=== PATIENT | female | born 1985 | race African-American/Black ===

== ENCOUNTER 2016-06-18 14:26 | Outpatient (CLI) | payer OTHER, MEDICAID ==
[2016-06-18 15:24] LABS: APPEARANCE,URINE CLOUDY; BILIRUBIN,URINE NEGATIVE (NEGATIVE); GLUCOSE, URINE NEGATIVE (NEGATIVE); KETONES,URINE TRACE mg/dL (NEGATIVE); LEUKOCYTE ESTERASE,URINE LARGE (NEGATIVE); NITRITE,URINE POSITIVE (NEGATIVE); PROTEIN,URINE 30 mg/dL (NEGATIVE)
[2016-06-18 15:26] LABS: URINE BARBITURATES SCREEN NEGATIVE; URINE METHADONE SCREEN NEGATIVE; URINE OPIATES LOW NEGATIVE; URINE PHENCYCLIDINE SCREEN NEGATIVE
[2016-06-18] MEDS ORDERED: LOPERAMIDE HCL 2 MG CAPSULE PO ONE (15:57)
--- NOTE | 2016-06-18 16:00 | L&D Flow Sheet ---
LD Flowsheet Datetime Report Generated by CPN: 06/18/2016 16:00 Datetime: 06/18/2016 15:17 Vital Signs NBP Sys/Rachel/Mean (mmHg): 98 (QS system process) : 61 (QS system process) : 75 (QS system process) Pulse: 85 (QS system process) Datetime: 06/18/2016 15:06 Pain Pain Scale: 2 (Natalia Payne, VIRAL) Pain Presence: Constant (Natalia Payne, VIRAL) Pain Type: Cramping (Natalia Payne, VIRAL) Pain Location: Abdomen (Natalia Payne RN) Pain Goal: 0 (Natalia Payne RN) Pain Relief Measures: Comfort Measures (Natalia Payne, VIRAL) Pain Coping: Talking Through Contractions (Natalia Payne, VIRAL) Vaginal Exam Membrane Status: Intact (Natalia Payne, VIRAL) Vaginal Bleeding: None (Natalia Payne, VIRAL) Maternal Assessment Level of Consciousness: Fully Conscious (Natalia Marhefka, RN) DTR's/Clonus: DTRs 2+; No Clonus (Natalia Marhefka, RN) Headache: Denies (Natalia Marhefka, RN) Breath Sounds, Left: Clear and Equal (Natalia Marhefka, RN) Breath Sounds, Right: Clear and Equal (Natalia Marhefka, RN) Nausea/Vomiting: Present (Natalia Marhefka, RN) RUQ Epigastric Pain: Denies (Natalia Marhefka, RN) Datetime: 06/18/2016 14:47 Vital Signs NBP Sys/Rachel/Mean (mmHg): 98 (QS system process) : 58 (QS system process) : 73 (QS system process) Pulse: 93 (QS system process) Datetime: 06/18/2016 14:45 Patient Care Patient Position/Activity: Left Lateral; Semi-Fowlers (Natalia Marhefka, RN) Teaching Instructional Method: Verbal; Patient Instructed; Verbalized Understanding (Natalia Marhefka, RN) Plan of Care: Plan of Care Discussed (Natalia Payne RN) Unit Routine: [place] to Room; Call Reese; Bed; Unit Personnel; Monitoring; Bathroom Privileges (Natalia Payne RN)
[2016-06-18] MEDS ORDERED: LOPERAMIDE HCL 2 MG CAPSULE ONE (16:03)
== END 2016-06-18 16:50 | disposition home or self-care (01) ==
LOC: LC 14:26
PROVIDERS: ATTEND Obstetrics & Gynecology
PROC: 4A1HXCZ Monitoring of Products of Conception, Cardiac Rate, External Approach (ICD-10-PCS; principal; 2016-06-18)
DX: O21.2 Late vomiting of pregnancy (principal); R19.7 Diarrhea, unspecified; R10.9 Unspecified abdominal pain; Z3A.28 28 weeks gestation of pregnancy
CPT/HCPCS: 80307; 81001

== ENCOUNTER 2016-08-30 19:15 | Outpatient (CLI) | payer OTHER, MEDICAID ==
[2016-08-30 20:13] LABS: APPEARANCE,URINE CLEAR; BILIRUBIN,URINE NEGATIVE (NEGATIVE); GLUCOSE, URINE NEGATIVE (NEGATIVE); KETONES,URINE NEGATIVE (NEGATIVE); LEUKOCYTE ESTERASE,URINE MODERATE (NEGATIVE); NITRITE,URINE NEGATIVE (NEGATIVE); PROTEIN,URINE NEGATIVE (NEGATIVE); URINE SPECIFIC GRAVITY 1.004; UROBILINOGEN,URINE NEGATIVE mg/dL (<2.0)
[2016-08-30 20:16] LABS: AMNISURE (ROM) NEGATIVE (NEGATIVE)
[2016-08-30 20:28] LABS: URINE BARBITURATES SCREEN NEGATIVE; URINE METHADONE SCREEN NEGATIVE; URINE OPIATES LOW NEGATIVE; URINE PHENCYCLIDINE SCREEN NEGATIVE
[2016-08-30] MEDS ORDERED: HYDROXYZINE PAMOATE 50 MG CAPSULE ONE (22:21)
== END 2016-08-30 22:31 | disposition home or self-care (01) ==
LOC: LC 19:15
PROVIDERS: ATTEND Student in an Organized Health Care Education/Training Program
PROC: 4A1HXCZ Monitoring of Products of Conception, Cardiac Rate, External Approach (ICD-10-PCS; principal; 2016-08-30)
DX: O47.1 False labor at or after 37 completed weeks of gestation (principal); Z3A.39 39 weeks gestation of pregnancy
CPT/HCPCS: 80307; 81005; 84112

== ENCOUNTER 2016-08-31 11:43 | Inpatient (IN) | payer OTHER, MEDICAID ==
[~2016-08-31 11:43] MED LIST: DEXAMETHASONE SOD PHOSPHATE INJ 4 MG/1 ML VIAL ONE; KETOROLAC TROMETHAMINE 60 MG/2 ML SDV ONE; METOCLOPRAMIDE HCL INJ/PF 10 MG/2 ML SDV ONE; ONDANSETRON HCL INJ/PF 4 MG/2 ML SDV ONE
--- NOTE | 2016-08-31 12:00 | Non Stress Test Report ---
Non Stress Test Datetime Report Generated by CPN: 08/31/2016 12:00 DEMOGRAPHIC Test Number: 1 EGA NST: 38.5 INDICATION Indication for Study: Other Indication for Study (NST) Other: LC MONITORING Monitor Explained: Monitor Explained; Test Explained; Patient Verbalized Understanding Time on Monitor: 08/30/2016 19:40 Time off Monitor: 08/30/2016 22:06 NST Duration: 146 NST INTERVENTIONS NST Interventions: Reposition Patient Physician Notified NST: Dr Wang BABY A: [id number] BABY A Movement : Present Contraction Frequency : 3-11 FHR Baseline : 140 Accelerations : 15X15 Decelerations : None Variability : Moderate 6-25bpm NST Review: Meets Criteria for Reactive NST NST Review and Verified By : Fidel Chinchilla RN NST Results: Reactive NST REPORT Report Trigger: Send Report
[2016-08-31] MEDS ORDERED: CEFAZOLIN SODIUM 2 GM in DEXTROSE 5%-WATER 50 ML IV PRN (12:45)
[2016-08-31] MEDS ORDERED: CEFAZOLIN 2 GM/D5W RTU 2 GM/50 ML RTUPB IV PRN (13:05)
[2016-08-31 13:21] LABS: APPEARANCE,URINE SLIGHTLY-CLOUDY; BILIRUBIN,URINE NEGATIVE (NEGATIVE); GLUCOSE, URINE NEGATIVE (NEGATIVE); KETONES,URINE NEGATIVE (NEGATIVE); LEUKOCYTE ESTERASE,URINE LARGE (NEGATIVE); NITRITE,URINE POSITIVE (NEGATIVE); PROTEIN,URINE NEGATIVE (NEGATIVE); URINE SPECIFIC GRAVITY 1.006; UROBILINOGEN,URINE NEGATIVE mg/dL (<2.0)
[2016-08-31 13:38] LABS: URINE BARBITURATES SCREEN NEGATIVE; URINE METHADONE SCREEN NEGATIVE; URINE OPIATES LOW NEGATIVE; URINE PHENCYCLIDINE SCREEN NEGATIVE
[2016-08-31 13:54] LABS: ABSOLUTE LYMPHOCYTES (AUTO) 2.1 10^3/uL (0.5-4.7); ABSOLUTE MONOCYTES (AUTO) 1.2 10^3/uL (0.1-1.4); ABSOLUTE NEUT (AUTO) 3.9 10^3/uL (1.7-8.2); BASOPHILS % (AUTO) 0.4 % (0-2); EOSINOPHILS % (AUTO) 0.4 % (0-6); HEMATOCRIT 31.4 % (36.0-47.0); HEMOGLOBIN 9.9 g/dL (12.0-15.5); HGB HCT DIFFERENCE -1.7; LYMPHOCYTES % (AUTO) 29.3 % (13-45); MEAN CORPUSCULAR HEMOGLOBIN 22.6 pg (27.0-33.4); MEAN CORPUSCULAR HGB CONC 31.5 g/dL (32.0-36.0); MEAN CORPUSCULAR VOLUME 72 fl (80-97); MONOCYTES % (AUTO) 17.1 % (3-13); RED BLOOD COUNT 4.38 10^6/uL (3.72-5.28); RED CELL DISTRIBUTION WIDTH 16.2 % (11.5-14.0); SEGMENTED NEUTROPHILS % (AUTO) 52.8 % (42-78); WHITE BLOOD COUNT 7.3 10^3/uL (4.0-10.5)
[2016-08-31] MEDS ORDERED: CITRIC ACID/SODIUM CITRATE ORAL SOLN 15 ML UDCUP ONE (16:19)
[2016-08-31] MEDS ORDERED: CEFAZOLIN 2 GM/D5W RTU 2 GM/50 ML RTUPB IV ONE (16:19)
[2016-08-31] MEDS ORDERED: FENTANYL CITRATE INJ/PF 100 MCG/2 ML AMPUL ONE ×3 (16:51→19:36)
[2016-08-31] MEDS ORDERED: EPHEDRINE SULFATE INJ 50 MG/1 ML AMPULE ONE (16:51)
[2016-08-31] MEDS ORDERED: OXYTOCIN 10 UNIT/ML VIAL ONE (16:51)
[2016-08-31] MEDS ORDERED: OXYTOCIN/NORMAL SALINE 20 UNIT/1,000 ML RTUINJ ONE (16:51)
[2016-08-31] MEDS ORDERED: MIDAZOLAM 2 MG/2 ML INJ ONE (16:51)
[2016-08-31] MEDS ORDERED: PROMETHAZINE HCL INJ 25 MG/1 ML VIAL IV PRN ×3 (17:03→20:07)
[2016-08-31] MEDS ORDERED: DIPHENHYDRAMINE HCL 50 MG/ML VIAL IV PRN (17:03)
[2016-08-31] MEDS ORDERED: ONDANSETRON HCL INJ/PF 4 MG/2 ML SDV IV PRN (17:03)
[2016-08-31] MEDS ORDERED: MEPERIDINE HCL/PF INJ 25 MG/1 ML DISP.SYRIN IV PRN (17:03)
[2016-08-31] MEDS ORDERED: FENTANYL CITRATE INJ/PF 100 MCG/2 ML AMPUL IV PRN ×3 (17:03)
[2016-08-31] MEDS ORDERED: MORPHINE SULFATE 10 MG/ML INJ IV PRN (17:03)
[2016-08-31] MEDS ORDERED: ACETAMINOPHEN 100 ML IV ONE (18:19)
--- NOTE | 2016-08-31 18:46 | Operative Report ---
Operative Report DATE OF SURGERY: 08/31/16 Operative Report: Repeat PREOPERATIVE DIAGNOSIS: Intrauterine at 38 weeks and 6 days with history of currently in latent labor with lower uterine segment pain, gestational diabetes POSTOPERATIVE DIAGNOSIS: Intrauterine at 38 weeks and 6 days with gestational diabetes. latent labor, history of , and lower uterine segment pain OPERATION: Repeat low transverse cervical section SURGEON: ELVIRA PERES ANESTHESIA: Spinal TISSUE REMOVED OR ALTERED: placenta COMPLICATIONS: None ESTIMATED BLOOD LOSS: 500 INTRAOPERATIVE FINDINGS: Herring female with Apgars 9 and 9. Weight 2930 g. Vertex presentation and clear amniotic fluid. Lower uterine segment was thin but not ruptured. Normal tubes and ovaries. PROCEDURE: After discussing risks benefits and alternatives of the procedure and obtaining informed consent the patient was taken to the operating room where spinal anesthesia was achieved. She was positioned in the dorsal supine position with a leftward tilt. She was then prepped and draped in the usual standard fashion. Pfannenstiel skin incision was made and the abdomen was entered in layers in the usual standard fashion. The C safe knife was used to make a low- transverse hysterotomy incision. The surgeon's hand was entered into the hysterotomy incision and the vertex elevated. After delivery of the head, a loose nuchal cord was reduced. Shoulders and body were delivered easily thereafter. Nasopharynx and oropharynx were bulb suctioned. Cord was clamped -2 and cut. The was handed to pediatrics who were present. The placenta was manually extracted. The uterus was cleared of all clots and debris. The hysterotomy incision was closed with 0 Monocryl in a running locked fashion. Excellent hemostasis was observed. The uterus tubes and ovaries were returned to the peritoneal cavity. The cavity was irrigated with saline and hemostasis was again assured. A layer of Interceed was placed in an inverted T fashion over the lower uterine segment and anterior aspect of the uterus. Peritoneum was closed with 2-0 Vicryl in a pursestring fashion. Rectus muscles were loosely reapproximated with interrupted stitches of 2-0 Vicryl. The subfascial space was inspected and noted to be hemostatic. The fascia was closed with #1 Vicryl. The skin was closed in a subcuticular fashion with 4-0 Monocryl. An OpSite dressing was applied. The patient was taken to recovery in stable condition. All sponge needle lap and instrument counts were correct correct -2.
[2016-08-31] MEDS ORDERED: MORPHINE SULFATE 10 MG/ML INJ ONE (19:16)
--- NOTE | 2016-08-31 19:28 | Delivery Summary ---
Del Sum A-C Datetime Report Generated by CPN: 08/31/2016 19:27 DELIVERY PERSONNEL DELIVERY PERSONNEL: [phone] Delivery Doctor:: Brigitte El MD Anesthesiologist:: Yanely Hernandez MD SIDE DOOR MAN:: Sarah Cordova SIDE DOOR MAN Labor and Delivery Nurse:: Hannah Ventura RN Neonatal Nurse Practitioner:: LIU Moralez Nursery Nurse:: Guadalupe Coe RN MATERNAL INFORMATION Delivery Anesthesia: Spinal Medications After Delivery: Pitocin Bolus-Please Comment Meds After Delivery Comment: Pitocin 20 units in 1 L NS Maternal Complications: None LABOR SUMMARY EDC: 09/08/2016 00:00 No. Babies in Womb: 1 Attempted: No Labor Anesthesia: None LABOR INFORMATION Oxytocin: N/A Group B Beta Strep: positive Antibiotics # of Doses: 1 Antibiotics Time of Last Dose: 1654 Name of Antibiotic Given: Ancef Steroids Given: None Reason Steroids Not Administered: Not Applicable MEMBRANES Membranes Rupture Method: Artificial Rupture of Membranes: 08/31/2016 17:34 Length of Rupture (hr): 0.00 Amniotic Fluid Color: Clear Amniotic Fluid Amount: None Amniotic Fluid Odor: Normal STAGES OF LABOR Stage 3 hr: 0 Stage 3 min: 2 VAGINAL DELIVERY Episiotomy: None Laceration Extension: N/A Laceration Type: None Laceration Repair: Not Applicable Sponge Count Correct: N/A Sharps Count Correct: N/A CSECTION DELIVERY Primary Indication: Other Other Primary Indication: latent labor Secondary Indication: Other Other Secondary Indication: previous incision tenderness CSection Urgency: Non-Scheduled CSection Incidence: Repeat Elective: Elective CSection Incision: Lower Uterine Transverse BABY A INFORMATION Infant Delivery Date/Time: 08/31/2016 17:34 Method of Delivery: Born in Route : No : N/A Forceps: N/A Vacuum Extraction: N/A Shoulder Dystocia : No PRESENTATION/POSITION BABY A Presentation: Cephalic Cephalic Presentation: Vertex Breech Presentation: N/A PLACENTA INFORMATION BABY A Placenta Delivery Time : 08/31/2016 17:36 Placenta Method of Delivery: Expressed Placenta Status: Delivered SCORES BABY A Heart Rate 1 min: >100 bpm Resp Effort 1 min: Good Cry Reflex Irritability 1 min: Cough or Sneeze or Pulls Away Muscle Tone 1 min: Active Motion Color 1 min: Body [place], Extremities Blue Resuscitation Effort 1 min: Tactile Stimulation SCORE 1 MIN: 9 Heart Rate 5 min: >100 bpm Resp Effort 5 min: Good Cry Reflex Irritability 5 min: Cough or Sneeze or Pulls Away Muscle Tone 5 min: Active Motion Color 5 min: Body [place], Extremities Blue Resuscitation Effort 5 min: Tactile Stimulation SCORE 5 MIN: 9 INFORMATION BABY A Gestational Age at Delivery: 38.6 Gestational Status: Early Term- 37- 38.6 Weeks Infant Outcome : Liveborn Condition : Stable Infant Sex: Female WEIGHT/LENGTH BABY A Birthweight (gm): 2930 Infant Weight (lb): 6 Weight (oz): 7 Length (in): 18.50 Length (cm): 46.99 CORD INFORMATION BABY A No. Cord Vessels: 3 Nuchal Cord : N/A Cord Blood Taken: Yes-For Eval (Mom's Blood Type - or O+) Infant Suction: Mouth; Nose ASSESSMENT BABY A Infant Complications: None Physical Findings at Delivery: Within Normal Limits Respirations: Appears Normal Skin to Skin: No Laundry Press Operator/ALS Called : No Care By: Stella Coe RN Transferred To: [facility] BABY B INFORMATION : N/A
[2016-08-31] MEDS ORDERED: MISOPROSTOL 0.2 MG TABLET ONE (19:45)
[2016-08-31] MEDS ORDERED: METHYLERGONOVINE MALEATE INJ/PF 0.2 MG/1 ML AMPULE ONE (19:45)
[2016-08-31] MEDS ORDERED: FLUCONAZOLE 100 MG TABLET PO ONE (20:05)
[2016-08-31] MEDS ORDERED: HYDROMORPHONE HCL INJ/PF 2 MG/ML AMPULE IV ONE (20:05)
[2016-08-31] MEDS ORDERED: HYDROMORPHONE HCL INJ/PF 2 MG/ML AMPULE IV PRN (20:07)
[2016-08-31] MEDS ORDERED: OXYCODONE-ACETAMINOPHEN 5-325 MG TABLET PO PRN (20:07)
[2016-08-31] MEDS ORDERED: SIMETHICONE 80 MG TAB.CHEW PO PRN (20:07)
[2016-08-31] MEDS ORDERED: MEASLES,MUMPS&RUBELLA VACC/PF 0.5 ML VIAL SUBCUT PRN (20:07)
[2016-08-31] MEDS ORDERED: ACETAMINOPHEN 325 MG TABLET PO PRN (20:07)
[2016-08-31] MEDS ORDERED: DIPH/PERTUSS(ACELL)/TETANUS VAC/PF 0.5 ML SYR (>=10YO) IM PRN (20:07)
[2016-08-31] MEDS ORDERED: OXYTOCIN/NORMAL SALINE 1,000 ML IV PRN (20:07)
[2016-08-31] MEDS ORDERED: RINGERS SOLUTION,LACTATED 1,000 ML IV PRN (20:07)
[2016-08-31] MEDS ORDERED: ONDANSETRON 4 MG TAB.RAPDIS PO PRN (20:09)
[2016-08-31] MEDS ORDERED: HYDROMORPHONE HCL INJ/PF 2 MG/ML AMPULE ONE (20:15)
[2016-08-31] MEDS ORDERED: IBUPROFEN 800 MG TABLET PO PRN (20:56)
[2016-08-31] MEDS ORDERED: PROMETHAZINE HCL INJ 50 MG/1 ML VIAL IM PRN (20:57)
[2016-08-31] MEDS: OXYCODONE-ACETAMINOPHEN 5-325 MG TABLET PO PRN (21:40)
[2016-09-01] MEDS: OXYCODONE-ACETAMINOPHEN 5-325 MG TABLET PO PRN ×3 (04:31→22:08)
[2016-09-01] MEDS: KETOROLAC TROMETHAMINE INJ/PF 30 MG/1 ML SDV IV SCH ×2 (06:10→12:58)
[2016-09-01 06:40] LABS: HEMATOCRIT 30.6 % (36.0-47.0); HEMOGLOBIN 9.8 g/dL (12.0-15.5); HGB HCT DIFFERENCE -1.2; MEAN CORPUSCULAR HEMOGLOBIN 22.8 pg (27.0-33.4); MEAN CORPUSCULAR VOLUME 71 fl (80-97); RED BLOOD COUNT 4.29 10^6/uL (3.72-5.28); RED CELL DISTRIBUTION WIDTH 16.1 % (11.5-14.0)
[2016-09-01 06:45] LABS: WHITE BLOOD COUNT 15.7 10^3/uL (4.0-10.5)
[2016-09-01] MEDS: CITALOPRAM HYDROBROMIDE 20 MG TABLET PO SCH (09:48)
[2016-09-01] MEDS: DOCUSATE SODIUM 100 MG CAPSULE PO SCH ×2 (09:48→17:46)
[2016-09-01] MEDS: PRENATAL VITAMIN W-O CA NO5/FE FUMARATE/FA CAPSULE PO SCH (09:48)
--- NOTE | 2016-09-01 12:19 | PDOC PROGRESS REPORT ---
Subjective-OB Subjective: Post Delivery Day: 1 30 year old s/p repeat delivery pp1. Denies any needs at this time Physical Exam (OB) Vital Signs: Temp Pulse Resp BP Pulse Ox 98.3 F 75 16 108/68 100 09/01/16 11:21 09/01/16 11:21 09/01/16 11:21 09/01/16 11:21 09/01/16 11:21 Intake & Output 08/31/16 09/01/16 09/02/16 06:59 06:59 06:59 Intake Total 1000 Output Total 1200 Balance -200 Weight 79 kg - General General Appearance: Appears well In distress: None - Dressing Removed: No Incision: Dressing - opsite-old blood noted and was marked by RN yesterday, no significant change, will replace with new one - Lochia Lochia Amount: Moderate 25-50 ml Lochia Color: Rubra/Red - Abdomen Description: Tender, Soft Hernia Present: No Fundal Description: Firm, Midline Fundal Height: u/u - u/2 - Respiratory Respiratory Status: No respiratory distress - Extremities Upper extremity: Normal inspection Lower extremities: Normal inspection - Psychological Associated symptoms: Normal affect, Normal mood - mother, fob and several visitors in room. Objective-Diagnostic Laboratory: 09/01/16 06:27 08/31/16 08/31/16 08/31/16 13:00 13:31 13:31 WBC 7.3 RBC 4.38 Hgb 9.9 L Hct 31.4 L MCV 72 L MCH 22.6 L MCHC 31.5 L RDW 16.2 H Plt Count 286 Seg Neutrophils % 52.8 Lymphocytes % 29.3 Monocytes % 17.1 H Eosinophils % 0.4 Basophils % 0.4 Absolute Neutrophils 3.9 Absolute Lymphocytes 2.1 Absolute Monocytes 1.2 Absolute Eosinophils 0.0 Absolute Basophils 0.0 Urine Color YELLOW Urine Appearance SLIGHTLY-CLOUDY Urine pH 7.0 Ur Specific [place] 1.006 Urine Protein NEGATIVE Urine Glucose (UA) NEGATIVE Urine Ketones NEGATIVE Urine Blood NEGATIVE Urine Nitrite POSITIVE H Ur Leukocyte Esterase LARGE H Blood Type O POSITIVE Antibody Screen NEGATIVE 09/01/16 06:27 WBC 15.7 H D RBC 4.29 Hgb 9.8 L Hct 30.6 L MCV 71 L MCH 22.8 L MCHC 32.0 RDW 16.1 H Plt Count 274 Seg Neutrophils % Lymphocytes % Monocytes % Eosinophils % Basophils % Absolute Neutrophils Absolute Lymphocytes Absolute Monocytes Absolute Eosinophils Absolute Basophils Urine Color Urine Appearance Urine pH Ur Specific [place] Urine Protein Urine Glucose (UA) Urine Ketones Urine Blood Urine Nitrite Ur Leukocyte Esterase Blood Type Antibody Screen Assessment and Plan(PN) - Assessment and Plan (1) Anemia Qualifiers: Anemia type: unspecified type Qualified Code(s): D64.9 - Anemia, unspecified Is this a current diagnosis for this admission?: YesPlan: iron supplementation and increase iron in diet (2) Delivery by emergency caesarean section Is this a current diagnosis for this admission?: YesPlan: continue stay, anticipate d/c in the am - Time Spent with Patient Time with patient: Less than 15 minutes Medications reviewed and adjusted accordingly: Yes - Disposition Anticipated Discharge: Home Within: within 24 hours
[2016-09-01] MEDS: IBUPROFEN 800 MG TABLET PO SCH (23:39)
[2016-09-02] MEDS: OXYCODONE-ACETAMINOPHEN 5-325 MG TABLET PO PRN ×2 (02:26→08:45)
[2016-09-02] MEDS: IBUPROFEN 800 MG TABLET PO SCH ×2 (06:04→11:11)
--- NOTE | 2016-09-02 07:39 | PDOC PROGRESS REPORT ---
Subjective-OB Subjective: Post Delivery Day: 30 year old. Denies any needs at this time Doing well, family at BS, ready to go home, pain under control, sore when breast feeding, passing gas, scant bleeding, ready to go home Physical Exam (OB) Vital Signs: Temp Pulse Resp BP Pulse Ox 98.3 F 72 18 105/57 L 96 09/02/16 04:18 09/02/16 04:18 09/02/16 04:18 09/02/16 04:18 09/02/16 04:18 Intake & Output 09/01/16 09/02/16 09/03/16 06:59 06:59 06:59 Intake Total 1000 Output Total 1200 300 Balance -200 -300 Weight 79 kg - Dressing Removed: No Incision: Dressing, Well Approximated - Lochia Lochia Amount: Scant < 10 ml Lochia Color: Rubra/Red - Abdomen Description: Tender, Firm Hernia Present: No Fundal Description: Firm, Midline Fundal Height: u/3 - u/4 Objective-Diagnostic Laboratory: 09/01/16 06:27 Assessment and Plan(PN) - Assessment and Plan (1) Delivery by emergency caesarean section Is this a current diagnosis for this admission?: Yes (2) Anemia Qualifiers: Anemia type: unspecified type Qualified Code(s): D64.9 - Anemia, unspecified Is this a current diagnosis for this admission?: Yes - Time Spent with Patient Time with patient: Less than 15 minutes Medications reviewed and adjusted accordingly: Yes - Disposition Anticipated Discharge: Home Within: Other - home today
--- NOTE | 2016-09-02 07:47 | PDOC DISCHARGE SUMMARY ---
Final Diagnosis Discharge Date: 09/02/16 - Final Diagnosis (1) Delivery by emergency caesarean section Is this a current diagnosis for this admission?: Yes (2) Anemia Is this a current diagnosis for this admission?: Yes Discharge Data - Discharge Medication Home Medications: Vit#96/Ferrous Fum/FA [ Tablet] 1 each PO DAILY 12/10/13 Citalopram Hydrobromide [Celexa 20 mg Tablet] 10 mg PO DAILY #0 tablet 09/02/16 Ibuprofen [Motrin 800 mg Tablet] 800 mg PO Q6 #30 tablet 09/02/16 Oxycodone HCl/Acetaminophen [Percocet 5-325 mg Tablet] 1 tab PO Q4HP PRN #30 tablet 09/02/16 Reason(s) for Admission: Ceasarean Section-Repeat Procedures: NST, Ultrasound Intrapartum Procedure(s): : Low Cervical, Transverse - Data Baby 1 Female Home with Mother: Yes Complications: No - Diagnosis Test Laboratory: Temp Pulse Resp BP Pulse Ox 98.3 F 72 18 105/57 L 96 09/02/16 04:18 09/02/16 04:18 09/02/16 04:18 09/02/16 04:18 09/02/16 04:18 08/31/16 08/31/16 09/01/16 13:00 13:31 06:27 RBC 4.38 4.29 Hgb 9.9 L 9.8 L Hct 31.4 L 30.6 L Urine Opiates Screen NEGATIVE - Discharge information/Instructions Discharge Activity: Activity As Tolerated, No Lifting Over 10 Pounds, No Lifting /Push/Pulling, Pelvic Rest Discharge Diet: As Tolerated, Regular Disposition: HOME, SELF-CARE Follow up with: [facility] in: 1, Weeks
[2016-09-02] MEDS: CITALOPRAM HYDROBROMIDE 20 MG TABLET PO SCH (10:09)
[2016-09-02] MEDS: PRENATAL VITAMIN W-O CA NO5/FE FUMARATE/FA CAPSULE PO SCH (10:10)
[2016-09-02] MEDS: DOCUSATE SODIUM 100 MG CAPSULE PO SCH (10:10)
[2016-09-02 10:19] VITALS: BP 114/67
== END 2016-09-02 12:31 | disposition home or self-care (01) | DRG 766 ==
LOC: LC 11:43 → LR 12:47 → 2S 20:20
PROVIDERS: ADMIT Specialist; ATTEND Specialist
PROC: 10D00Z1 Extraction of Products of Conception, Low, Open Approach (ICD-10-PCS; principal; 2016-08-31)
PROC: 4A1HXCZ Monitoring of Products of Conception, Cardiac Rate, External Approach (ICD-10-PCS; 2016-08-31)
DX: O34.211 Maternal care for low transverse scar from previous cesarean delivery (principal); O99.02 Anemia complicating childbirth; D64.9 Anemia, unspecified; O24.420 Gestational diabetes mellitus in childbirth, diet controlled; O69.81X0 Labor and delivery complicated by cord around neck, without compression, not applicable or unspecified; O99.824 Streptococcus B carrier state complicating childbirth; Z83.3 Family history of diabetes mellitus; Z80.1 Family history of malignant neoplasm of trachea, bronchus and lung; Z80.42 Family history of malignant neoplasm of prostate; Z80.0 Family history of malignant neoplasm of digestive organs; Z3A.38 38 weeks gestation of pregnancy; Z37.0 Single live birth
CPT/HCPCS: 1961; 36415; 80307; 81001; 81005; 82962; 85025; 85027; 86592; 86850; 86900; 86901; 88307; 94799; J0131; J0690; J1100; J1170; J1885; J2210; J2250; J2270; J2405; J2590; J2765; J3010; J3490; J7120

== ENCOUNTER 2016-12-06 13:43 | Emergency (ER) | payer OTHER, MEDICAID ==
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
== END 2016-12-06 14:23 | disposition home or self-care (01) ==
LOC: ER 13:43
DX: S46.912A Strain of unspecified muscle, fascia and tendon at shoulder and upper arm level, left arm, initial encounter (principal); M54.5 Low back pain; V89.2XXA Person injured in unspecified motor-vehicle accident, traffic, initial encounter
CPT/HCPCS: 99283

== ENCOUNTER 2017-08-01 06:32 | Outpatient (CLI) | payer MEDICAID ==
[2017-08-01 07:06] LABS: APPEARANCE,URINE CLEAR; BILIRUBIN,URINE NEGATIVE (NEGATIVE); COLOR,URINE STRAW; GLUCOSE, URINE NEGATIVE (NEGATIVE); KETONES,URINE NEGATIVE (NEGATIVE); LEUKOCYTE ESTERASE,URINE TRACE (NEGATIVE); NITRITE,URINE NEGATIVE (NEGATIVE); PROTEIN,URINE NEGATIVE (NEGATIVE); URINE SPECIFIC GRAVITY 1.003; UROBILINOGEN,URINE NEGATIVE mg/dL (<2.0)
[2017-08-01] MEDS ORDERED: RINGERS SOLUTION,LACTATED 1,000 ML IV ONE (07:15)
[2017-08-01] MEDS ORDERED: HYDROXYZINE PAMOATE 50 MG CAPSULE PO ONE (07:16)
[2017-08-01 07:26] LABS: URINE AMPHETAMINES SCREEN NEGATIVE; URINE BARBITURATES SCREEN NEGATIVE; URINE BENZODIAZEPINES SCREEN NEGATIVE; URINE COCAINE SCREEN NEGATIVE; URINE MARIJUANA (THC) SCREEN NEGATIVE; URINE METHADONE SCREEN NEGATIVE; URINE PHENCYCLIDINE SCREEN NEGATIVE
--- NOTE | 2017-08-01 09:06 | RADIOLOGY REPORT (SQ) ---
EXAM DESCRIPTION: U/S OB 14+ TRNABD 1GES W/O DOP COMPLETED DATE/TIME: 08/01/2017 8:36 am REASON FOR STUDY: check cervical length, complete anatomy per dr meraz COMPARISON: None. TECHNIQUE: Static and Dynamic grayscale imaging performed of gravid uterus using transabdominal appr oach. Additional selected color Doppler and spectral images recorded. All stored on PACS. LIMITATIONS: None. FINDINGS: EGA: 25 weeks 0 days MATHEUS: 11/14/2017 EFW: 767 grams PERCENTILE: 41 CINDY: 8.1 PLACENTA: Fundal. GRADE: I PRESENTATION: Cephalic. ANATOMY: HEART RATE: 133 beats per minute. FOUR CHAMBER HEART: Visualized. THREE VESSEL CORD: Yes. CORD INSERTION: Visualized. KIDNEYS AND BLADDER: Visualized. Appear normal. STOMACH: Visualized. Appears normal. SPINE: Normal as visualized. BRAIN AND LATERAL VENTRICLES: Visualized. Appear normal. OTHER: No other significant finding. MATERNAL ADNEXA: Maternal ovaries not visualized. CERVICAL LENGTH: 3.4 cm. Closed. OTHER: No other significant finding. IMPRESSION: LIVING INTRAUTERINE . ESTIMATED GESTATIONAL AGE 25 weeks 0 days NO VISUALIZED ANOMALIES. Trimester of : Second trimester - 13 weeks 1 day to 27 weeks 6 days. TECHNICAL DOCUMENTATION: JOB ID: [id number] [employer]- All Rights Reserved Reading location - IP/workstation name: [email or web address]
== END 2017-08-01 11:00 | disposition home or self-care (01) ==
LOC: LC 06:32
PROVIDERS: ATTEND Obstetrics & Gynecology
PROC: 4A1HXCZ Monitoring of Products of Conception, Cardiac Rate, External Approach (ICD-10-PCS; principal; 2017-08-01)
DX: O26.892 Other specified pregnancy related conditions, second trimester (principal); R10.9 Unspecified abdominal pain; O98.812 Other maternal infectious and parasitic diseases complicating pregnancy, second trimester; B37.0 Candidal stomatitis; Z3A.25 25 weeks gestation of pregnancy
CPT/HCPCS: 36415; 76805; 80307; 80361; 81001

== ENCOUNTER 2017-11-07 05:56 | Inpatient (IN) | payer MEDICAID ==
[2017-11-06 11:35] LABS: APPEARANCE,URINE SLIGHTLY-CLOUDY; BILIRUBIN,URINE NEGATIVE (NEGATIVE); GLUCOSE, URINE NEGATIVE (NEGATIVE); KETONES,URINE 20 mg/dL (NEGATIVE); LEUKOCYTE ESTERASE,URINE LARGE (NEGATIVE); NITRITE,URINE NEGATIVE (NEGATIVE); PROTEIN,URINE NEGATIVE (NEGATIVE); URINE SPECIFIC GRAVITY 1.014
[2017-11-06 11:36] LABS: COLOR,URINE YELLOW
[2017-11-06 12:41] LABS: ABSOLUTE EOSINOPHILS # (AUTO) 0.1 10^3/uL (0.0-0.6); ABSOLUTE LYMPHOCYTES (AUTO) 2.2 10^3/uL (0.5-4.7); ABSOLUTE MONOCYTES (AUTO) 0.8 10^3/uL (0.1-1.4); ABSOLUTE NEUT (AUTO) 4.3 10^3/uL (1.7-8.2); BASOPHILS % (AUTO) 0.4 % (0-2); HEMOGLOBIN 10.6 g/dL (12.0-15.5); LYMPHOCYTES % (AUTO) 29.6 % (13-45); MEAN CORPUSCULAR HEMOGLOBIN 24.5 pg (27.0-33.4); MEAN CORPUSCULAR HGB CONC 33.1 g/dL (32.0-36.0); MEAN CORPUSCULAR VOLUME 74 fl (80-97); MONOCYTES % (AUTO) 11.4 % (3-13); PLATELET COUNT 305 10^3/uL (150-450); RED BLOOD COUNT 4.33 10^6/uL (3.72-5.28); RED CELL DISTRIBUTION WIDTH 15.3 % (11.5-14.0); SEGMENTED NEUTROPHILS % (AUTO) 57.6 % (42-78); TOTAL CELLS COUNTED % (AUTO) 100 %; WHITE BLOOD COUNT 7.4 10^3/uL (4.0-10.5)
[2017-11-06 13:24] LABS: URINE AMPHETAMINES SCREEN NEGATIVE; URINE BARBITURATES SCREEN NEGATIVE; URINE BENZODIAZEPINES SCREEN NEGATIVE; URINE COCAINE SCREEN NEGATIVE; URINE MARIJUANA (THC) SCREEN NEGATIVE; URINE METHADONE SCREEN NEGATIVE; URINE PHENCYCLIDINE SCREEN NEGATIVE
[~2017-11-07 05:56] MED LIST changes: +CEFAZOLIN 2 GM/D5W RTU 2 GM/50 ML RTUPB IV PRN; -DEXAMETHASONE SOD PHOSPHATE INJ 4 MG/1 ML VIAL ONE; -KETOROLAC TROMETHAMINE 60 MG/2 ML SDV ONE; +LACTATED RINGERS 1000 ML IV PRN; +LIDOCAINE 0.5% INJ-PF (5 MG/ML) 50 ML SDV SUBCUT PRN; -METOCLOPRAMIDE HCL INJ/PF 10 MG/2 ML SDV ONE; -ONDANSETRON HCL INJ/PF 4 MG/2 ML SDV ONE; +RINGERS SOLUTION,LACTATED 2,000 ML IV PRN
[2017-11-07] MEDS ORDERED: CEFAZOLIN INJ 1 GM VIAL ONE (06:08)
[2017-11-07] MEDS ORDERED: OXYTOCIN 10 UNIT/ML VIAL ONE (07:36)
[2017-11-07] MEDS ORDERED: EPHEDRINE SULFATE INJ 50 MG/1 ML AMPULE ONE (07:37)
[2017-11-07] MEDS ORDERED: MIDAZOLAM 2 MG/2 ML INJ ONE (07:37)
[2017-11-07] MEDS ORDERED: FENTANYL CITRATE INJ/PF 100 MCG/2 ML AMPUL ONE (07:37)
[2017-11-07] MEDS ORDERED: PROPOFOL INJ 200 MG/20 ML VIAL IV ONE (07:37)
[2017-11-07] MEDS ORDERED: BUPIVACAINE HCL/DEX-WATER/PF 15 MG/2 ML AMPULE ONE (07:38)
[2017-11-07] MEDS ORDERED: SIMETHICONE 80 MG TAB.CHEW PO PRN (08:12)
[2017-11-07] MEDS ORDERED: OXYTOCIN/NORMAL SALINE 20 UNIT/1,000 ML RTUINJ IV PRN (08:12)
[2017-11-07] MEDS ORDERED: DIPH/PERTUSS(ACELL)/TETANUS VAC/PF 0.5 ML SYR (>=10YO) IM PRN (08:12)
[2017-11-07] MEDS ORDERED: RINGERS SOLUTION,LACTATED 1,000 ML IV PRN (08:12)
[2017-11-07] MEDS ORDERED: PROMETHAZINE HCL INJ 25 MG/1 ML VIAL IV PRN ×2 (08:12→08:59)
[2017-11-07] MEDS ORDERED: ACETAMINOPHEN 325 MG TABLET PO PRN (08:12)
[2017-11-07] MEDS ORDERED: ACETAMINOPHEN 1,000 MG/100 ML RTUPB IV PRN (08:12)
[2017-11-07] MEDS ORDERED: MEASLES,MUMPS&RUBELLA VACC/PF 0.5 ML VIAL SUBCUT PRN (08:12)
[2017-11-07] MEDS ORDERED: OXYCODONE-ACETAMINOPHEN 5-325 MG TABLET PO PRN (08:12)
[2017-11-07] MEDS ORDERED: MEPERIDINE HCL/PF INJ 25 MG/1 ML DISP.SYRIN IV PRN (08:59)
[2017-11-07] MEDS ORDERED: FENTANYL CITRATE INJ/PF 100 MCG/2 ML AMPUL IV PRN ×3 (08:59)
[2017-11-07] MEDS ORDERED: DIPHENHYDRAMINE HCL 50 MG/ML VIAL IV PRN (08:59)
--- NOTE | 2017-11-07 09:28 | Operative Report ---
Operative Report DATE OF SURGERY: 11/07/17 PREOPERATIVE DIAGNOSIS: Patient desires repeat to prevent risk of uterine rupture POSTOPERATIVE DIAGNOSIS: Same with uterine adhesions to the anterior abdominal wall OPERATION: Repeat via low transverse uterine incision lysis of adhesions SURGEON: BOONE WOOD ANESTHESIA: Spinal TISSUE REMOVED OR ALTERED: Placenta COMPLICATIONS: None ESTIMATED BLOOD LOSS: 250 cc INTRAOPERATIVE FINDINGS: Viable male with Apgars of 6 7 and 8. Normal tubes and ovaries. The uterus is adhesed to the anterior abdominal wall. The fascia on the left side of the abdomen over the incision area is very thin from previous C-sections PROCEDURE: Patient was taken to the OR and placed in supine position after her spinal anesthesia. She is prepared and draped in sterile fashion. Shields was placed for drainage of the bladder. Low transverse incision was made and carried down the level of the fascia. The fascial incision was made with knife and extended bilaterally with curved Young scissors. The fascia was off the rectus muscles using sharp and blunt dissection. The rectus muscles are in the midline. The fascia is very thin on the left side of the incision. The peritoneum was entered without incident. The uterus was sharply taken off the anterior aspect of the abdomen lysing the adhesions. Bladder blade was placed in uterine segment was identified. A low transverse incision was made creating a bladder flap. Bladder blade was placed low transverse uterine incision was made with the csafe knife and extended with fingertips. The baby was delivered with some fundal pressure. The position was occiput posterior. The mouth and nose were suctioned free. The cord is doubly clamped and cut. Baby is passed off to the instrumentation chemist in attendance. The placenta was manually extracted with trailing membranes. The uterus was externalized wrapped in a moist lap sponge. Uterine contents wiped free. Uterus was closed with a running locking layer of 0 chromic suture using the second layer to imbricate the first completing a double layer closure of the uterus. The serosa was closed with a running 2-0 chromic stitch. Because of the previous adhesions intercede was placed over the uterus. The pelvis was irrigated and suctioned free of fluid the uterus was replaced in the abdomen. The abdominal wall peritoneum was closed with running 2-0 chromic stitch. Fascia was closed with a running 0 Vicryl in 2 segments. Ashok's layer was brought together with 0 plain gut stitch and the skin was closed with running subcuticular 4-0 undyed Vicryl stitch. The wound was dressed mother and baby did well.
[2017-11-07] MEDS ORDERED: PROMETHAZINE HCL INJ 25 MG/1 ML VIAL ONE (09:33)
[2017-11-07] MEDS: HYDROMORPHONE HCL INJ/PF 2 MG/ML AMPULE ONE ×2 (09:33→10:04)
[2017-11-07] MEDS ORDERED: OXYTOCIN/NORMAL SALINE 20 UNIT/1,000 ML RTUINJ ONE (09:35)
[2017-11-07] MEDS ORDERED: ACETAMINOPHEN 1,000 MG/100 ML RTUPB IV ONE (10:05)
[2017-11-07] MEDS ORDERED: KETOROLAC TROMETHAMINE INJ/PF 30 MG/1 ML SDV ONE (10:05)
--- NOTE | 2017-11-07 10:07 | PDOC DELIVERY SUMMARY ---
Delivery Summary - Maternal Hx : III Hx # Term Pregnancies: 2 MATHEUS: 11/13/17 Gestational Age: 39.1 Ruptured Membranes: AROM Time of Rupture: 08:34 Fluids: Clear - Delivery Presentation: Vertex Heart Rate Monitoring: Done Pre-Operatively Support Person Present: Yes Location: LD : Scheduled Placenta: Within Normal Limits Delivery of Placenta Date: 11/07/17 Delivery of Placenta Time: 08:36 - Medications Type of Anesthesia:: Spinal - Infant Assess and Care Baby 1 Male Delivery of Date: 11/07/17 Delivery of Time: 08:35 at 1 minute: 6 at 5 minutes: 7 at 10 minutes: 8 Preprinted Number On Band: [id number] Infant Skin to Skin: No To Nursery At: 08:51 Mode of Transport: Carried - Delivery Personnel Curriculum And Assessment Director: LETICIA SILVERIO RN: Perry ERVIN RN: FAYE GARCIA MD: BOONE WOOD
[2017-11-07] MEDS: HYDROMORPHONE HCL INJ/PF 2 MG/ML AMPULE IV PRN ×3 (12:18→20:34)
[2017-11-07] MEDS: OXYCODONE-ACETAMINOPHEN 5-325 MG TABLET PO PRN ×2 (14:22→18:55)
[2017-11-07] MEDS: KETOROLAC TROMETHAMINE INJ/PF 30 MG/1 ML SDV IV SCH ×3 (14:22→23:26)
[2017-11-07] MEDS: DOCUSATE SODIUM 100 MG CAPSULE PO SCH ×2 (17:24→20:28)
[2017-11-07] MEDS: PRENATAL VITAMIN W DHA CAPSULE PO SCH (20:28)
[2017-11-07] MEDS ORDERED: DEXAMETHASONE SOD PHOSPHATE INJ 4 MG/1 ML VIAL ONE (21:19)
[2017-11-07] MEDS ORDERED: ONDANSETRON HCL INJ/PF 4 MG/2 ML SDV ONE (21:19)
[2017-11-07] MEDS ORDERED: PHENYLEPHRINE HCL INJ/PF 10 MG/1 ML SDV ONE (21:19)
[2017-11-08] MEDS: HYDROMORPHONE HCL INJ/PF 2 MG/ML AMPULE IV PRN (00:52)
[2017-11-08] MEDS: OXYCODONE-ACETAMINOPHEN 5-325 MG TABLET PO PRN ×5 (03:09→21:37)
[2017-11-08] MEDS: KETOROLAC TROMETHAMINE INJ/PF 30 MG/1 ML SDV IV SCH (05:35)
[2017-11-08 06:53] LABS: HEMATOCRIT 29.2 % (36.0-47.0); HEMOGLOBIN 9.6 g/dL (12.0-15.5); MEAN CORPUSCULAR HEMOGLOBIN 24.3 pg (27.0-33.4); MEAN CORPUSCULAR HGB CONC 32.7 g/dL (32.0-36.0); MEAN CORPUSCULAR VOLUME 74 fl (80-97); PLATELET COUNT 265 10^3/uL (150-450); RED BLOOD COUNT 3.95 10^6/uL (3.72-5.28); RED CELL DISTRIBUTION WIDTH 15.5 % (11.5-14.0); WHITE BLOOD COUNT 11.3 10^3/uL (4.0-10.5)
[2017-11-08] MEDS: DOCUSATE SODIUM 100 MG CAPSULE PO SCH ×2 (09:42→18:19)
[2017-11-08] MEDS: PRENATAL VITAMIN W DHA CAPSULE PO SCH (09:42)
--- NOTE | 2017-11-08 11:08 | PDOC PROGRESS REPORT ---
Subjective-OB Progress Note for:: 11/08/17 Subjective: Pt doing well, no concerns. she reports reg diet, +flatus and voiding without difficulty. pain is moderate Physical Exam (OB) Vital Signs: Temp Pulse Resp BP Pulse Ox 98.2 F 75 12 116/71 98 11/08/17 07:54 11/08/17 07:54 11/08/17 07:54 11/08/17 07:54 11/08/17 07:54 Intake & Output 11/07/17 11/08/17 11/09/17 06:59 06:59 06:59 Intake Total 4394 Output Total 2560 Balance 1834 Weight 79.5 kg - Dressing Removed: No - Opsite CD&I Incision: Dressing - Lochia Lochia Amount: Scant < 10 ml Lochia Color: Rubra/Red - Abdomen Description: Soft, Round Hernia Present: No Fundal Description: Firm, Midline Fundal Height: u/u - u/2 Objective-Diagnostic Laboratory: 11/08/17 06:34 11/08/17 06:34 WBC 11.3 H RBC 3.95 Hgb 9.6 L Hct 29.2 L MCV 74 L MCH 24.3 L MCHC 32.7 RDW 15.5 H Plt Count 265 Assessment and Plan(PN) - Assessment and Plan (1) S/P repeat low transverse Is this a current diagnosis for this admission?: Yes (2) Anemia Qualifiers: Anemia type: iron deficiency Iron deficiency anemia type: unspecified iron deficiency Qualified Code(s): D50.9 - Iron deficiency anemia, unspecified Is this a current diagnosis for this admission?: Yes - Time Spent with Patient Time with patient: Less than 15 minutes Medications reviewed and adjusted accordingly: Yes - Disposition Anticipated Discharge: Home Within: within 48 hours
[2017-11-08] MEDS ORDERED: DIPH/PERTUSS(ACELL)/TETANUS VAC/PF 0.5 ML SYR (>=10YO) IM PRN (11:30)
[2017-11-08] MEDS ORDERED: MEASLES,MUMPS&RUBELLA VACC/PF 0.5 ML VIAL SUBCUT PRN (11:30)
[2017-11-08] MEDS: IBUPROFEN 800 MG TABLET PO SCH ×2 (12:09→18:19)
[2017-11-08] MEDS ORDERED: ASCORBIC ACID 500 MG TABLET ONE (14:14)
[2017-11-08] MEDS: FERROUS SULFATE 325 MG TABLET PO SCH ×2 (14:16→18:19)
[2017-11-08] MEDS: ASCORBIC ACID 500 MG TABLET PO SCH (18:19)
[2017-11-09] MEDS: IBUPROFEN 800 MG TABLET PO SCH ×4 (03:31→18:44)
[2017-11-09] MEDS: OXYCODONE-ACETAMINOPHEN 5-325 MG TABLET PO PRN ×4 (03:36→20:13)
[2017-11-09] MEDS: DOCUSATE SODIUM 100 MG CAPSULE PO SCH ×3 (09:11→18:46)
[2017-11-09] MEDS: ASCORBIC ACID 500 MG TABLET PO SCH ×2 (09:11→18:45)
[2017-11-09] MEDS: PRENATAL VITAMIN W DHA CAPSULE PO SCH (09:11)
[2017-11-09] MEDS: FERROUS SULFATE 325 MG TABLET PO SCH ×3 (09:12→18:44)
--- NOTE | 2017-11-09 12:39 | PDOC PROGRESS REPORT ---
Subjective-OB Progress Note for:: 11/09/17 Subjective: reports bleeding slowing, pain controlled with current meds. denies needs. Physical Exam (OB) Vital Signs: Temp Pulse Resp BP Pulse Ox 98.5 F 87 18 106/65 100 11/09/17 11:34 11/09/17 11:34 11/09/17 11:34 11/09/17 11:34 11/09/17 11:34 Intake & Output 11/08/17 11/09/17 11/10/17 06:59 06:59 06:59 Intake Total 4394 300 Output Total 2560 Balance 1834 300 Weight 78 kg - Dressing Removed: No - opsite Incision: Dressing - clean dry and intact Closure Type: Surgical Glue - Abdomen Description: Tender, Soft Hernia Present: No Fundal Description: Firm, Midline Fundal Height: u/u - u/2 - Abdominal Inspection: Normal Tenderness: Nontender - Extremities Lower extremities: Acit's sign - neg Calf: Normal, Nontender Objective-Diagnostic Laboratory: 11/08/17 06:34 Assessment and Plan(PN) - Assessment and Plan (1) S/P repeat low transverse Is this a current diagnosis for this admission?: Yes - Time Spent with Patient Time with patient: Less than 15 minutes Medications reviewed and adjusted accordingly: Yes - Disposition Anticipated Discharge: Home Within: within 24 hours
[2017-11-09] MEDS: NITROFURANTOIN MONOHYD/M-CRYST 100 MG CAPSULE PO SCH (18:16)
[2017-11-10] MEDS: IBUPROFEN 800 MG TABLET PO SCH ×3 (00:35→11:42)
[2017-11-10] MEDS: ASCORBIC ACID 500 MG TABLET PO SCH (09:31)
[2017-11-10] MEDS: PRENATAL VITAMIN W DHA CAPSULE PO SCH (09:33)
[2017-11-10] MEDS: FERROUS SULFATE 325 MG TABLET PO SCH (09:33)
[2017-11-10] MEDS: NITROFURANTOIN MONOHYD/M-CRYST 100 MG CAPSULE PO SCH (09:33)
[2017-11-10] MEDS: DOCUSATE SODIUM 100 MG CAPSULE PO SCH (09:34)
--- NOTE | 2017-11-10 10:42 | PDOC DISCHARGE SUMMARY ---
Final Diagnosis Discharge Date: 11/10/17 - Final Diagnosis (1) S/P repeat low transverse Is this a current diagnosis for this admission?: Yes Discharge Data - Discharge Medication Home Medications: Prenat 115/Iron Fum/Folic/Dss [ 19 Tablet] 1 each PO DAILY 11/06/17 Docusate Sodium [Colace 100 mg Capsule] 100 mg PO BID capsule 11/10/17 Ferrous Sulfate [Feosol 325 mg Tablet] 325 mg PO BID tablet 11/10/17 Ibuprofen [Motrin 800 mg Tablet] 800 mg PO Q6 tablet 11/10/17 Oxycodone HCl/Acetaminophen [Percocet 5-325 mg Tablet] 1 tab PO Q4HP PRN tablet 11/10/17 Procedures: NST Intrapartum Procedure(s): : Low Cervical, Transverse - Diagnosis Test Laboratory: Temp Pulse Resp BP Pulse Ox 98.3 F 66 16 111/67 100 11/10/17 07:40 11/10/17 07:40 11/10/17 07:40 11/10/17 07:40 11/10/17 07:40 11/06/17 11/06/17 11/08/17 09:45 12:05 06:34 RBC 4.33 3.95 Hgb 10.6 L 9.6 L Hct 32.0 L 29.2 L Urine Opiates Screen UNCONFIRMED POSITIVE - Discharge information/Instructions Discharge Activity: Balance Activity w/Rest, No Lifting/Push/Pulling, Pelvic Rest, No tub bath Discharge Diet: Regular Disposition: HOME, SELF-CARE Follow up with: [facility] in: 1, Weeks - incision check
[2017-11-10 11:35] VITALS: BP 107/64
== END 2017-11-10 11:55 | disposition home or self-care (01) | DRG 766 ==
LOC: 2S 05:56
PROVIDERS: ADMIT Obstetrics & Gynecology; ATTEND Obstetrics & Gynecology
PROC: 0UN90ZZ Release Uterus, Open Approach (ICD-10-PCS; 2017-11-07)
PROC: 10D00Z1 Extraction of Products of Conception, Low, Open Approach (ICD-10-PCS; principal; 2017-11-07 07:45)
DX: O34.211 Maternal care for low transverse scar from previous cesarean delivery (principal); O24.420 Gestational diabetes mellitus in childbirth, diet controlled; O99.824 Streptococcus B carrier state complicating childbirth; N73.6 Female pelvic peritoneal adhesions (postinfective); N85.8 Other specified noninflammatory disorders of uterus; Z3A.39 39 weeks gestation of pregnancy; Z37.0 Single live birth
CPT/HCPCS: 1961; 36415; 59025; 80307; 81001; 82962; 85025; 85027; 86850; 86900; 86901; 94799; C1765; J0131; J0690; J1100; J1170; J1885; J2250; J2370; J2405; J2550; J2590; J2704; J3010; J3490; J7120; J8499

== ENCOUNTER 2018-05-27 00:39 | Emergency (ER) | payer MEDICAID ==
[2018-05-27 00:53] VITALS: BP 102/70
[2018-05-27] MEDS ORDERED: CLINDAMYCIN HCL 150 MG CAPSULE PO ONE (02:34)
[2018-05-27] MEDS ORDERED: KETOROLAC TROMETHAMINE 60 MG/2 ML SDV IM ONE (02:34)
--- NOTE | 2018-05-27 02:37 | ER Document Report ---
ED General - General Chief Complaint: Toothache Stated Complaint: TOOTH PAIN Time Seen by Provider: 05/27/18 01:45 Primary Care Provider: VICKY MACKAY MD [Primary Care Provider] - Follow up as needed Notes: Patient is a 32-year-old female without chronic medical problems who presents with 2 days of progressively worsening throbbing, aching, constant pain to her right posterior mandibular molar. States that this has been an ongoing issue, that she has been instructed to have this tooth addressed to 4 months but has not yet followed up. States the pain became worse in the last 2 days and is now preventing her from being able to sleep prompting her to come to the emergency department. Patient is not trying to improve the pain. Eating or drinking worsens the pain. Denies any difficulty swallowing or breathing. No fever or constitutional symptoms. TRAVEL OUTSIDE OF THE [place] IN LAST 30 DAYS: No - Related Data Allergies/Adverse Reactions: amoxicillin Allergy (Verified 05/27/18 02:12) Past Medical History - General Information source: Patient - Social History Smoking Status: Never Smoker Frequency of alcohol use: None Drug Abuse: None Lives with: Family Family History: Reviewed & Not Pertinent Patient has suicidal ideation: No Patient has homicidal ideation: No - Past Medical History Cardiac Medical History: Denies: Hx Hypertension, Hx Pulmonary Embolism, Hx Heart Murmur Pulmonary Medical History: Denies: Hx Asthma, Hx Sleep Apnea, Hx Tuberculosis Neurological Medical History: Denies: Hx Cerebrovascular Accident, Hx Seizures Endocrine Medical History: Denies: Hx Hyperthyroidism, Hx Hypothyroidism Renal/ Medical History: Denies: Hx Kidney Stones, Hx Ovarian Cysts, Hx Peritoneal Dialysis, Hx Pelvic Inflammatory Disease Malignancy Medical History: Denies: Hx Breast Cancer, Hx Cervical Cancer, Hx Ovarian Cancer GI Medical History: Denies: Hx Gastroesophageal Reflux Disease, Hx Hiatal Hernia, Hx Ulcer Musculoskeletal Medical History: Denies Hx Fibromyalgia Psychiatric Medical History: Reports: Hx Depression - Denies: Hx Bipolar Disorder, Hx Post Traumatic Stress Disorder, Hx Schizophrenia Traumatic Medical History: Denies: Hx Fractures Infectious Medical History: Denies: Hx HIV Past Surgical History: Reports: Hx Section Review of Systems - Review of Systems Notes: Constitutional: Negative for fever. HENT: Positive for dental pain. Negative for sore throat. Eyes: Negative for visual changes. Cardiovascular: Negative for chest pain. Respiratory: Negative for shortness of breath. Gastrointestinal: Negative for abdominal pain, vomiting or diarrhea. Genitourinary: Negative for dysuria. Musculoskeletal: Negative for back pain. Skin: Negative for rash. Neurological: Negative for headaches, weakness or numbness. 10 point ROS negative except as marked above and in HPI. Physical Exam - Vital signs Vitals: Temp Pulse Resp BP Pulse Ox 98.8 F 82 16 102/70 100 05/27/18 00:52 05/27/18 00:52 05/27/18 00:52 05/27/18 00:52 05/27/18 00:52 Interpretation: Normal Notes: PHYSICAL EXAMINATION: GENERAL: Sleeping on initial assessment. Does not appear in any significant discomfort. HEAD: Atraumatic, normocephalic. EYES: Pupils equal round and reactive to light, extraocular movements intact, sclera anicteric, conjunctiva are normal. ENT: nares patent, poor dentition throughout. Tooth #31 is cracked, apparent dental carry on the buccal side of the remaining tooth. Associated swelling of the gumline without evidence of an apical abscess. No airway edema. Uvula midline. Oropharynx clear without exudates. Moist mucous membranes. NECK: Normal range of motion, supple without lymphadenopathy LUNGS: Breath sounds clear to auscultation bilaterally and equal. No wheezes rales or rhonchi. HEART: Regular rate and rhythm without murmurs ABDOMEN: Soft, nontender, normoactive bowel sounds. No guarding, no rebound. No masses appreciated. EXTREMITIES: Normal range of motion, no pitting or edema. No cyanosis. NEUROLOGICAL: No focal neurological deficits. Moves all extremities spontaneously and on command. PSYCH: Normal mood, normal affect. SKIN: Warm, Dry, normal turgor, no rashes or lesions noted. Course - Re-evaluation Re-evalutation: 05/27/18 02:35 Presentation is most consistent with likely an infected tooth. Patient has a cracked, nearly completely removed tooth #31 with associated swelling around the gumline without evidence of an apical abscess. This tooth is been an issue for quite some time but the patient has not yet followed up with dentistry. Airway is patent. Vitals within normal limits. Patient is able swallow without any difficulty. There is no significant facial swelling. No evidence of Ezequiel angina, apical abscess, or airway obstruction. Patient will be started on antibiotics. I've instructed to follow-up with dentistry as earliest ability for definitive management. At this time will discharge with return precautions and follow-up recommendations. Verbal discharge instructions given a the bedside and opportunity for questions given. Medication warnings reviewed. Azar causey is in agreement with this plan and has verbalized understanding of return precautions and the need for primary care follow-up in the next 24-72 hours. - Vital Signs Vital signs: Temp Pulse Resp BP Pulse Ox 98.8 F 82 16 102/70 100 05/27/18 00:52 05/27/18 00:52 05/27/18 00:52 05/27/18 00:52 05/27/18 00:52 Discharge - Discharge Clinical Impression: Pain, dental, Dental infection Condition: Good Disposition: HOME, SELF-CARE Additional Instructions: You have been seen for dental pain. It is very important that you follow-up with a dentist for definitive care. Please return if you develop fever greater than 101, swelling in your face, vomiting, difficulty breathing or swallowing, or any other symptoms that are concerning to you. For pain you should take ibuprofen 600 mg every 6 hours as needed. Prescriptions: Clindamycin HCl 300 mg PO TID #30 capsule Referrals: VICKY MACKAY MD [Primary Care Provider] - Follow up as needed
== END 2018-05-27 03:06 | disposition home or self-care (01) ==
LOC: ER 00:39
DX: K04.7 Periapical abscess without sinus (principal); K02.9 Dental caries, unspecified; K03.81 Cracked tooth; K08.89 Other specified disorders of teeth and supporting structures; Z88.0 Allergy status to penicillin
CPT/HCPCS: 99282; 96372; J3490; J1885

== ENCOUNTER 2018-12-23 15:06 | Emergency (ER) | payer SELFPAY ==
[2018-12-23 15:25] LABS: ABSOLUTE BASOPHILS # (AUTO) 0.1 10^3/uL (0.0-0.2); ABSOLUTE EOSINOPHILS # (AUTO) 0.2 10^3/uL (0.0-0.6); ABSOLUTE LYMPHOCYTES (AUTO) 3.4 10^3/uL (0.5-4.7); ABSOLUTE NEUT (AUTO) 3.6 10^3/uL (1.7-8.2); BASOPHILS % (AUTO) 0.9 % (0-2); EOSINOPHILS % (AUTO) 2.5 % (0-6); HEMATOCRIT 33.3 % (36.0-47.0); LYMPHOCYTES % (AUTO) 41.5 % (13-45); MEAN CORPUSCULAR HGB CONC 32.9 g/dL (32.0-36.0); MEAN CORPUSCULAR VOLUME 79 fl (80-97); MONOCYTES % (AUTO) 11.6 % (3-13); PLATELET COUNT 344 10^3/uL (150-450); RED BLOOD COUNT 4.22 10^6/uL (3.72-5.28); RED CELL DISTRIBUTION WIDTH 13.9 % (11.5-14.0); SEGMENTED NEUTROPHILS % (AUTO) 43.5 % (42-78); TOTAL CELLS COUNTED % (AUTO) 100 %; WHITE BLOOD COUNT 8.2 10^3/uL (4.0-10.5)
[2018-12-23 15:40] LABS: ALBUMIN 3.6 g/dL (3.5-5.0); ALKALINE PHOSPHATASE 60 U/L (38-126); ANION GAP 10 (5-19); ASPARTATE AMINO TRANSFERASE 18 U/L (14-36); BILIRUBIN,DIRECT 0.1 mg/dL (0.0-0.4); BILIRUBIN,TOTAL 0.3 mg/dL (0.2-1.3); BLOOD UREA NITROGEN 11 mg/dL (7-20); CALCIUM 9.3 mg/dL (8.4-10.2); CARBON DIOXIDE 24 mmol/L (22-30); CHLORIDE 101 mmol/L (98-107); GLUCOSE 110 mg/dL (75-110); POTASSIUM 3.8 mmol/L (3.6-5.0); TOTAL PROTEIN 6.3 g/dL (6.3-8.2)
[2018-12-23] MEDS ORDERED: RINGERS SOLUTION,LACTATED 1,000 ML IV ONE (15:50)
--- NOTE | 2018-12-23 16:09 | ER Document Report ---
ED General - General Chief Complaint: Syncope Stated Complaint: POSSIBLE SYNCOPE Time Seen by Provider: 12/23/18 15:49 TRAVEL OUTSIDE OF THE [place] IN LAST 30 DAYS: No - HPI Notes: Patient presents for near syncopal episode. Patient states that she has not been eating and drinking as much due to stress. No known medical problems no recent cough congestion fevers chest pain or shortness of breath. She stated she stood up quickly from a front porch at that point she felt very lightheaded and then fell. She states she does not think she lost consciousness but eyewitnesses states that she had jerking movement for several seconds. No history of seizure disorder. No headache at this time otherwise is at baseline. - Related Data Allergies/Adverse Reactions: amoxicillin Allergy (Verified 05/27/18 02:12) Past Medical History - Social History Smoking Status: Unknown if Ever Smoked Family History: Reviewed & Not Pertinent Patient has suicidal ideation: No Patient has homicidal ideation: No - Past Medical History Cardiac Medical History: Denies: Hx Hypertension, Hx Pulmonary Embolism, Hx Heart Murmur Pulmonary Medical History: Denies: Hx Asthma, Hx Sleep Apnea, Hx Tuberculosis Neurological Medical History: Denies: Hx Cerebrovascular Accident, Hx Seizures Endocrine Medical History: Denies: Hx Hyperthyroidism, Hx Hypothyroidism Renal/ Medical History: Denies: Hx Kidney Stones, Hx Ovarian Cysts, Hx Peritoneal Dialysis, Hx Pelvic Inflammatory Disease Malignancy Medical History: Denies: Hx Breast Cancer, Hx Cervical Cancer, Hx Ovarian Cancer GI Medical History: Denies: Hx Gastroesophageal Reflux Disease, Hx Hiatal Hernia, Hx Ulcer Musculoskeletal Medical History: Denies Hx Fibromyalgia Psychiatric Medical History: Reports: Hx Depression - Denies: Hx Bipolar Disorder, Hx Post Traumatic Stress Disorder, Hx Schizophrenia Traumatic Medical History: Denies: Hx Fractures Infectious Medical History: Denies: Hx HIV Past Surgical History: Reports: Hx Section Review of Systems - Review of Systems Constitutional: No symptoms reported EENT: No symptoms reported Cardiovascular: No symptoms reported Respiratory: No symptoms reported Gastrointestinal: No symptoms reported Genitourinary: No symptoms reported Female Genitourinary: No symptoms reported Musculoskeletal: No symptoms reported Skin: No symptoms reported Hematologic/Lymphatic: No symptoms reported Neurological/Psychological: See HPI Physical Exam - Vital signs Vitals: Temp Resp Pulse Ox 98.1 F 19 89 L 12/23/18 15:15 12/23/18 15:15 12/23/18 15:15 - General General appearance: Appears well, Alert - HEENT Head: Normocephalic, Atraumatic Eyes: Normal Conjunctiva: Normal Cornea: Normal Pupils: PERRL Mucous membranes: Other - Mildly dry oral mucous membranes - Respiratory Respiratory status: No respiratory distress Chest status: Nontender Breath sounds: Normal Chest palpation: Normal - Cardiovascular Rhythm: Regular Heart sounds: Normal auscultation Murmur: No - Abdominal Inspection: Normal Distension: No distension Bowel sounds: Normal - Back Back: Normal, Nontender - Extremities General upper extremity: Normal inspection, Normal ROM General lower extremity: Normal inspection, Normal ROM - Neurological Neuro grossly intact: Yes Cognition: Normal Orientation: AAOx4 Cranial nerves: Normal Cerebellar coordination: Normal Motor strength normal: LUE, RUE, LLE, RLE - Psychological Associated symptoms: Normal affect Course - Re-evaluation Re-evalutation: 12/23/18 18:25 Labs within normal limits are nonsignificant patient does show with positive qualitative beta hCG. In the absence of any vaginal cramping abdominal pain or vaginal bleeding or loss of fluids. 12/23/18 18:25 Patient does show signs of urinary tract infection will provide 10 days of Macrobid. She is also provided OB GEN referral was told to take [id number] vitamins on a daily basis. Strict return precautions regarding any abdominal cramping pain vaginal discharge or loss of fluids to return to emergency department immediately. Due to no symptoms will defer vaginal ultrasound at this time. 12/23/18 18:26 Restroom without difficulty states she is asymptomatic at this time. - Vital Signs Vital signs: Temp Pulse Resp BP Pulse Ox 98.1 F 19 112/81 89 L 12/23/18 15:15 12/23/18 15:15 12/23/18 15:25 12/23/18 15:15 - Laboratory Result Diagrams: 12/23/18 14:50 12/23/18 14:50 Laboratory results interpreted by me: 12/23/18 12/23/18 12/23/18 14:50 14:50 14:50 Hgb 11.0 L Hct 33.3 L MCV 79 L MCH 26.0 L Sodium 134.6 L Serum HCG, Qual POSITIVE H Beta HCG, Quant Urine Protein Urine Urobilinogen Ur Leukocyte Esterase 12/23/18 12/23/18 14:50 15:45 Hgb Hct MCV MCH Sodium Serum HCG, Qual Beta HCG, Quant 4632.10 H Urine Protein 30 H Urine Urobilinogen 2.0 H Ur Leukocyte Esterase SMALL H Discharge - Discharge Clinical Impression: Near syncope Qualifiers: Weeks of gestation: unspecified Qualified Code(s): Z34.90 - Encounter for supervision of normal , unspecified, unspecified trimester Condition: Good Disposition: HOME, SELF-CARE Instructions: ([facility]), Near Syncopal Episode ([facility]) Additional Instructions: Please take [id number] vitamins. Please follow-up with [facility] within 1 week. If you begin to experience any abdominal cramping loss of fluids or vaginal discharge or bleeding please return immediately to the emergency department. Referrals: VICKY MACKAY MD [ACTIVE STAFF] - Follow up as needed
[2018-12-23 16:14] LABS: AMORPHOUS SEDIMENT,URINE TRACE /HPF
[2018-12-23 16:17] LABS: APPEARANCE,URINE CLOUDY; BILIRUBIN,URINE NEGATIVE (NEGATIVE); COLOR,URINE YELLOW; GLUCOSE, URINE NEGATIVE (NEGATIVE); KETONES,URINE NEGATIVE (NEGATIVE); LEUKOCYTE ESTERASE,URINE SMALL (NEGATIVE); NITRITE,URINE NEGATIVE (NEGATIVE); PROTEIN,URINE 30 mg/dL (NEGATIVE); URINE SPECIFIC GRAVITY 1.022
--- NOTE | 2018-12-23 16:55 | RADIOLOGY REPORT (SQ) ---
EXAM DESCRIPTION: CT HEAD WITHOUT COMPLETED DATE/TIME: 12/23/2018 4:46 pm REASON FOR STUDY: sycope, hit head COMPARISON: None. TECHNIQUE: Axial images acquired through the brain without intravenous contrast. Images reviewed wi th bone, brain and subdural windows. Additional sagittal and coronal reconstructions were generated. Images stored on PACS. All CT scanners at this facility use dose modulation, iterative reconstruction, and/or weight based d osing when appropriate to reduce radiation dose to as low as reasonably achievable (ALARA). [facility]: Dose Right [facility]: CareDose [facility]: Dose Right [facility]: Teradose 4D [facility]: Lifestreams RADIATION DOSE: CT Rad equipment meets quality standard of care and radiation dose reduction techniq ues were employed. CTDIvol: 53.2 mGy. DLP: 991 mGy-cm. mGy. LIMITATIONS: None. FINDINGS: VENTRICLES: Normal size and contour. CEREBRUM: No masses. No hemorrhage. No midline shift. No evidence for acute infarction. Normal gra y/white matter differentiation. No areas of low density in the white matter. CEREBELLUM: No masses. No hemorrhage. No alteration of density. No evidence for acute infarction. EXTRAAXIAL SPACES: No fluid collections. No masses. ORBITS AND GLOBE: No intra- or extraconal masses. Normal contour of globe without masses. CALVARIUM: No fracture. PARANASAL SINUSES: No fluid or mucosal thickening. SOFT TISSUES: No mass or hematoma. OTHER: No other significant finding. IMPRESSION: NORMAL BRAIN CT WITHOUT CONTRAST. EVIDENCE OF ACUTE STROKE: NO. COMMENT: Quality ID # [id number]: Final reports with documentation of one or more dose reduction techniques (e.g., Automated exposure control, adjustment of the mA and/or kV according to patient size, use of iterative reconstruction technique) TECHNICAL DOCUMENTATION: JOB ID: [id number] [employer]- All Rights Reserved Reading location - IP/workstation name: [email or web address]
--- NOTE | 2018-12-23 18:14 | EKG REPORT ---
SEVERITY:- NORMAL ECG - SINUS RHYTHM : Confirmed by: Lamin Fine MD 23-Dec-2018 18:13:59
[2018-12-23 19:52] VITALS: BP 112/64
== END 2018-12-23 19:49 | disposition home or self-care (01) ==
LOC: ER 15:06
DX: Z34.90 Encounter for supervision of normal pregnancy, unspecified, unspecified trimester (principal); R55 Syncope and collapse; R42 Dizziness and giddiness; W19.XXXA Unspecified fall, initial encounter
CPT/HCPCS: 93005; 99284; 96360; 36415; 82962; 84702; 84703; 85025; 80053; 81001; 70450; 93010; J7120

== ENCOUNTER 2019-07-03 11:22 | Outpatient (CLI) | payer SELFPAY ==
[2019-07-03 13:01] LABS: LYMPHOCYTES % (AUTO) 20.9 % (13-45); SEGMENTED NEUTROPHILS % (AUTO) 71.3 % (42-78)
[2019-07-03 13:02] LABS: ABSOLUTE EOSINOPHILS # (AUTO) 0.1 10^3/uL (0.0-0.6); ABSOLUTE LYMPHOCYTES (AUTO) 1.6 10^3/uL (0.5-4.7); ABSOLUTE MONOCYTES (AUTO) 0.5 10^3/uL (0.1-1.4); ABSOLUTE NEUT (AUTO) 5.5 10^3/uL (1.7-8.2); BASOPHILS % (AUTO) 0.3 % (0-2); EOSINOPHILS % (AUTO) 0.8 % (0-6); MONOCYTES % (AUTO) 6.8 % (3-13)
[2019-07-03 13:03] LABS: MEAN CORPUSCULAR HEMOGLOBIN 27.3 pg (27.0-33.4); MEAN CORPUSCULAR HGB CONC 34.4 g/dL (32.0-36.0); MEAN CORPUSCULAR VOLUME 79 fl (80-97); PLATELET COUNT 281 10^3/uL (150-450); RED BLOOD COUNT 3.78 10^6/uL (3.72-5.28); RED CELL DISTRIBUTION WIDTH 13.4 % (11.5-14.0); TOTAL CELLS COUNTED % (AUTO) 100 %; WHITE BLOOD COUNT 7.7 10^3/uL (4.0-10.5)
[2019-07-03 13:04] LABS: HEMOGLOBIN 10.3 g/dL (12.0-15.5)
[2019-07-03 13:18] LABS: APPEARANCE,URINE SLIGHTLY-CLOUDY; BILIRUBIN,URINE NEGATIVE (NEGATIVE); COLOR,URINE YELLOW; GLUCOSE, URINE 150 mg/dL (NEGATIVE); KETONES,URINE TRACE mg/dL (NEGATIVE); NITRITE,URINE NEGATIVE (NEGATIVE); PROTEIN,URINE NEGATIVE (NEGATIVE); URINE SPECIFIC GRAVITY 1.015; UROBILINOGEN,URINE NEGATIVE mg/dL (<2.0)
[2019-07-03 13:19] LABS: LEUKOCYTE ESTERASE,URINE MODERATE (NEGATIVE)
[2019-07-03 13:51] LABS: URINE AMPHETAMINES SCREEN NEGATIVE; URINE BARBITURATES SCREEN NEGATIVE; URINE BENZODIAZEPINES SCREEN NEGATIVE; URINE MARIJUANA (THC) SCREEN NEGATIVE; URINE METHADONE SCREEN NEGATIVE; URINE PHENCYCLIDINE SCREEN NEGATIVE
[2019-07-03 13:53] LABS: URINE COCAINE SCREEN UNCONFIRMED POSITIVE
[2019-07-03 15:04] LABS: CHLAM PCR NOT DETECTED (NOT DETECT)
--- NOTE | 2019-07-03 15:59 | RADIOLOGY REPORT (SQ) ---
EXAM DESCRIPTION: U/S OB 14+ TRNABD 1GES W/O DOP COMPLETED DATE/TIME: 07/03/2019 3:49 pm REASON FOR STUDY: no care COMPARISON: None. TECHNIQUE: Static and Dynamic grayscale imaging performed of gravid uterus using transabdominal appr oach. Additional selected color Doppler and spectral images recorded. All stored on PACS. LIMITATIONS: None. FINDINGS: FETUSES SEEN:1 EGA: 31 weeks 2 days. Calculated using BPD,FL,HC,AC documented on images. Clinical dates are unknown . MATHEUS: 09/02/2019 EFW: 1,812 grams CINDY: 11.3 PLACENTA: Anterior location. GRADE: I PRESENTATION: Cephalic. ANATOMY: HEART RATE: 158 beats per minute. FOUR CHAMBER HEART: Visualized. THREE VESSEL CORD: Yes. CORD INSERTION: Visualized. KIDNEYS AND BLADDER: Visualized. Appear normal. STOMACH: Visualized. Appears normal. SPINE: Not visualized. BRAIN AND LATERAL VENTRICLES: Not visualized. OTHER: No other significant finding. MATERNAL ADNEXA: Maternal ovaries not visualized. CERVICAL LENGTH: Obscured. OTHER: No other significant finding. IMPRESSION: LIVING INTRAUTERINE . ESTIMATED GESTATIONAL AGE 31 WEEKS 2 DAYS. NO VISUALIZED ANOMALIES. Trimester of : Third trimester - 28 weeks to delivery. TECHNICAL DOCUMENTATION: JOB ID: [id number] 2010 [employer]- All Rights Reserved Reading location - IP/workstation name: [email or web address]
--- NOTE | 2019-07-03 16:22 | Progress Note ---
Provider Note Provider Note: discussed lack of PNC and pt states she has been trying to get mcaid-proof of given. CNM contacted senior materials planner who is planning to get back to her tomorrow (spoke to Torey who will pass on to Beth), also Samina at [facility] notified. anemia-instructed to start iron OTC, pt agrees +cocaine-discussed risks, pt denies recent use
--- NOTE | 2019-07-03 16:27 | Non Stress Test Report ---
Non Stress Test Datetime Report Generated by CPN: 07/03/2019 16:27 DEMOGRAPHIC EGA NST: 34.2 INDICATION Indication for Study (NST) Other: Provider orders MONITORING Monitor Explained: Monitor Explained; Test Explained; Patient Verbalized Understanding Time on Monitor: 07/03/2019 11:51 Time off Monitor: 07/03/2019 12:11 NST Duration: 20 NST INTERVENTIONS NST Interventions: PO Hydration Physician Notified NST: A. Trejo, CNM BABY A: [id number] BABY A Movement : Present Contraction Frequency : none FHR Baseline : 145 Accelerations : 15X15 Decelerations : None Variability : Moderate 6-25bpm NST Review: Meets Criteria for Reactive NST NST Review and Verified By : VIRAL Becerra Results: Reactive NST REPORT Report Trigger: Send Report
[2019-07-04 06:36] LABS: HEPATITIS C VIRUS AB <0.1 s/co ratio (0.0-0.9)
[2019-07-04 07:12] LABS: HEPATITS B SURFACE ANTIGEN Negative (Negative)
== END 2019-07-03 16:20 | disposition home or self-care (01) ==
LOC: LC 11:22
PROVIDERS: ATTEND Obstetrics & Gynecology Gynecology
PROC: 4A1HXCZ Monitoring of Products of Conception, Cardiac Rate, External Approach (ICD-10-PCS; principal; 2019-07-03)
DX: O99.013 Anemia complicating pregnancy, third trimester (principal); D64.9 Anemia, unspecified; O09.33 Supervision of pregnancy with insufficient antenatal care, third trimester; O99.323 Drug use complicating pregnancy, third trimester; F14.90 Cocaine use, unspecified, uncomplicated; Z3A.34 34 weeks gestation of pregnancy
CPT/HCPCS: 59025; 86900; 86901; 36415; 86850; 82962; 85025; 87077; 86762; 86592; 81001; 87081; 87340; 86701; 80307; 80353; 83036; 87491; 87591; 86803; 86804; 76805; G0480

== ENCOUNTER 2019-07-28 15:19 | Outpatient (CLI) | payer SELFPAY ==
[2019-07-28] MEDS ORDERED: RINGERS SOLUTION,LACTATED 1,000 ML IV ONE (16:22)
[2019-07-28 16:27] LABS: APPEARANCE,URINE CLOUDY; BILIRUBIN,URINE NEGATIVE (NEGATIVE); COLOR,URINE YELLOW; GLUCOSE, URINE NEGATIVE (NEGATIVE); KETONES,URINE 20 mg/dL (NEGATIVE); LEUKOCYTE ESTERASE,URINE LARGE (NEGATIVE); NITRITE,URINE NEGATIVE (NEGATIVE); PROTEIN,URINE 30 mg/dL (NEGATIVE); URINE SPECIFIC GRAVITY 1.017; UROBILINOGEN,URINE NEGATIVE mg/dL (<2.0)
[2019-07-28] MEDS ORDERED: CEFTRIAXONE INJ 1000 MG VIAL IV ONE (16:58)
--- NOTE | 2019-07-28 17:08 | RADIOLOGY REPORT (SQ) ---
EXAM DESCRIPTION: U/S OB LIMITED IMAGES COMPLETED DATE/TIME: 07/28/2019 4:58 pm REASON FOR STUDY: abd pain, drug use COMPARISON: 07/03/2019 TECHNIQUE: Limited transabdominal grayscale ultrasound for evaluation of specific requested obstetri josé luis parameters. LIMITATIONS: Cervix not visualized due to shadowing, acoustical interference from adjacent hea d and due to empty bladder. FINDINGS: CERVICAL LENGTH: Not seen, as above. CINDY: Largest vertical pocket 9.7 x 5.3 cm. FHR: 140 beats per minute. PRESENTATION: Cephalic. PLACENTA: Anterolateral maternal right. No evidence of abruption. ANATOMY: Not assessed OTHER: No other significant findings. IMPRESSION: 1. Limited obstetrical ultrasound with findings as above. Trimester of : Third trimester - 28 weeks to delivery. TECHNICAL DOCUMENTATION: JOB ID: [id number] [employer]- All Rights Reserved Reading location - IP/workstation name: [email or web address]
[2019-07-28 17:18] LABS: ABSOLUTE EOSINOPHILS # (AUTO) 0.2 10^3/uL (0.0-0.6); ABSOLUTE LYMPHOCYTES (AUTO) 1.8 10^3/uL (0.5-4.7); ABSOLUTE MONOCYTES (AUTO) 0.6 10^3/uL (0.1-1.4); ABSOLUTE NEUT (AUTO) 5.4 10^3/uL (1.7-8.2); BASOPHILS % (AUTO) 0.3 % (0-2); EOSINOPHILS % (AUTO) 1.9 % (0-6); HEMATOCRIT 31.9 % (36.0-47.0); HEMOGLOBIN 10.9 g/dL (12.0-15.5); LYMPHOCYTES % (AUTO) 22.3 % (13-45); MEAN CORPUSCULAR HEMOGLOBIN 26.5 pg (27.0-33.4); MEAN CORPUSCULAR HGB CONC 34.1 g/dL (32.0-36.0); MEAN CORPUSCULAR VOLUME 78 fl (80-97); MONOCYTES % (AUTO) 7.9 % (3-13); PLATELET COUNT 302 10^3/uL (150-450); RED CELL DISTRIBUTION WIDTH 13.8 % (11.5-14.0); SEGMENTED NEUTROPHILS % (AUTO) 67.6 % (42-78); TOTAL CELLS COUNTED % (AUTO) 100 %; WHITE BLOOD COUNT 7.9 10^3/uL (4.0-10.5)
[2019-07-28] MEDS ORDERED: ONDANSETRON HCL INJ/PF 4 MG/2 ML SDV IV ONE (17:26)
[2019-07-28] MEDS ORDERED: CEFTRIAXONE INJ 1000 MG VIAL ONE (17:27)
[2019-07-28] MEDS ORDERED: ONDANSETRON HCL INJ/PF 4 MG/2 ML SDV ONE (17:28)
[2019-07-28 17:55] LABS: T.VAGINALIS (WET MOUNT) NO TRICHOMONAS SEEN
[2019-07-28 17:56] LABS: BACTERIA (WET MOUNT) 4+ BACTERIA SEEN; EPITHELIALS (WET MOUNT) 3+ EPITHELIALS SEEN; WBCS (WET MOUNT) 1+ WBCS SEEN; YEAST (WET MOUNT) NO YEAST SEEN
[2019-07-28 18:17] LABS: URINE AMPHETAMINES SCREEN NEGATIVE; URINE MARIJUANA (THC) SCREEN NEGATIVE; URINE METHADONE SCREEN NEGATIVE; URINE PHENCYCLIDINE SCREEN NEGATIVE
[2019-07-28 18:48] LABS: URINE BARBITURATES SCREEN UNCONFIRMED POSITIVE; URINE BENZODIAZEPINES SCREEN UNCONFIRMED POSITIVE; URINE COCAINE SCREEN UNCONFIRMED POSITIVE
[2019-07-28 19:28] LABS: CHLAM PCR NOT DETECTED (NOT DETECT)
== END 2019-07-28 18:55 | disposition home or self-care (01) ==
LOC: LC 15:19
PROVIDERS: ATTEND Obstetrics & Gynecology
DX: O26.893 Other specified pregnancy related conditions, third trimester (principal); Z3A.34 34 weeks gestation of pregnancy; E86.0 Dehydration
CPT/HCPCS: 36415; 87210; 85025; 81001; 87081; 80307; 80345; 80353; 87491; 87591; 80361; 76815; 59025; G0480 ×4; J0696; J2405; 87077; 87086; 87088

== ENCOUNTER 2019-08-29 08:08 | Inpatient (IN) | payer SELFPAY ==
[2019-08-29] MEDS ORDERED: CEFAZOLIN SODIUM 2 GM in DEXTROSE 5%-WATER 100 ML IV PRN ×2 (08:23→08:28)
[2019-08-29] MEDS ORDERED: RINGERS SOLUTION,LACTATED 1,000 ML IV PRN ×2 (08:30→12:18)
[2019-08-29 08:58] LABS: ABSOLUTE BASOPHILS # (AUTO) 0.1 10^3/uL (0.0-0.2); ABSOLUTE EOSINOPHILS # (AUTO) 0.1 10^3/uL (0.0-0.6); ABSOLUTE MONOCYTES (AUTO) 0.8 10^3/uL (0.1-1.4); ABSOLUTE NEUT (AUTO) 5.1 10^3/uL (1.7-8.2); BASOPHILS % (AUTO) 0.7 % (0-2); EOSINOPHILS % (AUTO) 1.1 % (0-6); HEMOGLOBIN 11.1 g/dL (12.0-15.5); MEAN CORPUSCULAR HGB CONC 33.8 g/dL (32.0-36.0); MEAN CORPUSCULAR VOLUME 77 fl (80-97); MONOCYTES % (AUTO) 9.9 % (3-13); PLATELET COUNT 257 10^3/uL (150-450); RED BLOOD COUNT 4.28 10^6/uL (3.72-5.28); RED CELL DISTRIBUTION WIDTH 14.7 % (11.5-14.0); SEGMENTED NEUTROPHILS % (AUTO) 63.3 % (42-78); TOTAL CELLS COUNTED % (AUTO) 100 %; WHITE BLOOD COUNT 8.1 10^3/uL (4.0-10.5)
[2019-08-29] MEDS ORDERED: RINGERS SOLUTION,LACTATED 1,000 ML IV ONE (09:00)
[2019-08-29] MEDS ORDERED: MIDAZOLAM 2 MG/2 ML INJ ONE ×2 (09:39→13:08)
[2019-08-29] MEDS ORDERED: OXYTOCIN 10 UNIT/ML VIAL ONE (09:39)
[2019-08-29] MEDS ORDERED: ACETAMINOPHEN 1,000 MG/100 ML RTUPB IV ONE (09:39)
[2019-08-29] MEDS ORDERED: KETOROLAC TROMETHAMINE INJ/PF 30 MG/1 ML SDV ONE (09:39)
[2019-08-29] MEDS ORDERED: ONDANSETRON HCL INJ/PF 4 MG/2 ML SDV ONE (09:39)
[2019-08-29] MEDS ORDERED: FENTANYL CITRATE INJ/PF 100 MCG/2 ML AMPUL ONE (09:39)
[2019-08-29 10:06] LABS: APPEARANCE,URINE SLIGHTLY-CLOUDY; BILIRUBIN,URINE NEGATIVE (NEGATIVE); COLOR,URINE YELLOW; GLUCOSE, URINE NEGATIVE (NEGATIVE); KETONES,URINE NEGATIVE (NEGATIVE); LEUKOCYTE ESTERASE,URINE SMALL (NEGATIVE); NITRITE,URINE NEGATIVE (NEGATIVE); PROTEIN,URINE NEGATIVE (NEGATIVE); URINE SPECIFIC GRAVITY 1.013
[2019-08-29 10:24] LABS: URINE AMPHETAMINES SCREEN NEGATIVE; URINE BARBITURATES SCREEN NEGATIVE; URINE BENZODIAZEPINES SCREEN NEGATIVE; URINE COCAINE SCREEN NEGATIVE; URINE MARIJUANA (THC) SCREEN NEGATIVE; URINE METHADONE SCREEN NEGATIVE; URINE PHENCYCLIDINE SCREEN NEGATIVE
--- NOTE | 2019-08-29 10:28 | PDOC H&P ---
History of Present Illness Admission Date/PCP: 08/29/19 08:08 YUNI WOOD CNM Patient complains of: IUP @39 + wks, poor care, substance abuse, previous c/sections x 3, undesired fertility History of Present Illness: MERI SAN is a 33 year old female @ 39 + wks with history of previous x3. Her previous C-sections have all been with within less than 4 years. She desires a tubal ligation with this . Past Medical History Cardiac Medical History: Denies: Hypertension, Pulmonary Embolism, Heart Murmur Pulmonary Medical History: Denies: Asthma, Sleep Apnea, Tuberculosis Neurological Medical History: Reports: Seizures Endocrine Medical History: Denies: Hyperthyroidism, Hypothyroidism Malignancy Medical History: Denies: Breast Cancer, Cervical Cancer, Ovarian Cancer GI Medical History: Denies: Gastroesophageal Reflux Disease, Hiatal Hernia Musculoskeltal Medical History: Denies: Fibromyalgia Psychiatric Medical History: Reports: Depression - Denies: Bipolar Disorder, Post Traumatic Stress Disorder Infectious Medical History: Denies: HIV Past Surgical History Past Surgical History: Reports: Section - x3 Social History Information Source: Patient Smoking Status: Former Smoker Drugs: Cocaine - patient denies however she has been positive on toxocology screeens at L&D visits several times Hx Prescription Drug Abuse: No - again, patient has tested positive for opiates and benzos but denies use Family History Family History: Reviewed & Not Pertinent Parental Family History Reviewed: Yes Children Family History Reviewed: Yes Sibling(s) Family History Reviewed.: Yes Medication/Allergy Home Medications: Prenat 115/Iron Fum/Folic/Dss [ 19 Tablet] 1 each PO DAILY 11/06/17 Allergies/Adverse Reactions: No Known Allergies Allergy (Unverified 07/28/19 17:44) Physical Exam - Physical Exam Vital Signs: Temp Pulse Resp BP Pulse Ox 98.2 F 86 18 128/87 H 100 08/29/19 08:22 08/29/19 08:22 08/29/19 08:22 08/29/19 08:22 08/29/19 08:22 Intake & Output 08/28/19 08/29/19 08/30/19 06:59 06:59 06:59 Weight 148 kg General appearance: PRESENT: no acute distress, cooperative Result Laboratory Results: 08/29/19 08:45 08/29/19 08/29/19 08/29/19 08:45 08:45 09:30 WBC 8.1 RBC 4.28 Hgb 11.1 L Hct 33.0 L MCV 77 L MCH 26.0 L MCHC 33.8 RDW 14.7 H Plt Count 257 Seg Neutrophils % 63.3 Urine Color YELLOW Urine Appearance SLIGHTLY-CLOUDY Urine pH 6.0 Ur Specific [place] 1.013 Urine Protein NEGATIVE Urine Glucose (UA) NEGATIVE Urine Ketones NEGATIVE Urine Blood SMALL H Urine Nitrite NEGATIVE Ur Leukocyte Esterase SMALL H Blood Type O POSITIVE Antibody Screen NEGATIVE Assessment & Plan - Diagnosis (1) Previous section Is this a current diagnosis for this admission?: Yes (2) Substance abuse affecting in third trimester, antepartum Is this a current diagnosis for this admission?: Yes (3) Sterilization Is this a current diagnosis for this admission?: Yes (4) Qualifiers: Weeks of gestation: 39 weeks Qualified Code(s): Z3A.39 - 39 weeks gestation of - Time Time Spent: 30 to 50 Minutes - Inpatient Certification Based on my medical assessment, after consideration of the patient's comorbidities, presenting symptoms, or acuity I expect that the services needed warrant INPATIENT care.: Yes I certify that my determination is in accordance with my understanding of Medicare's requirements for reasonable and necessary INPATIENT services [42 CFR 412.3e].: Yes Medical Necessity: Need for Surgery - Plan Summary Plan Summary: discharge with normal postoperative course/care in 48 hours
[2019-08-29 10:48] LABS: APPEARANCE,URINE SLIGHTLY-CLOUDY; BILIRUBIN,URINE NEGATIVE (NEGATIVE); COLOR,URINE YELLOW; GLUCOSE, URINE NEGATIVE (NEGATIVE); KETONES,URINE NEGATIVE (NEGATIVE); LEUKOCYTE ESTERASE,URINE SMALL (NEGATIVE); NITRITE,URINE NEGATIVE (NEGATIVE); PROTEIN,URINE NEGATIVE (NEGATIVE); URINE SPECIFIC GRAVITY 1.013
[2019-08-29] MEDS ORDERED: MEPERIDINE HCL/PF INJ 25 MG/1 ML DISP.SYRIN IV PRN (11:13)
[2019-08-29] MEDS ORDERED: FENTANYL CITRATE INJ/PF 100 MCG/2 ML AMPUL IV PRN ×3 (11:13)
[2019-08-29] MEDS ORDERED: PROMETHAZINE HCL INJ 25 MG/1 ML VIAL IV PRN ×3 (11:13→12:18)
[2019-08-29] MEDS ORDERED: ONDANSETRON HCL INJ/PF 4 MG/2 ML SDV IV PRN (11:13)
[2019-08-29] MEDS ORDERED: MORPHINE SULFATE 10 MG/ML INJ IV PRN (11:13)
[2019-08-29] MEDS ORDERED: DIPHENHYDRAMINE HCL 50 MG/ML VIAL IV PRN (11:13)
[2019-08-29] MEDS ORDERED: OXYCODONE-ACETAMINOPHEN 5-325 MG TABLET PO PRN ×3 (11:13→12:18)
[2019-08-29] MEDS ORDERED: BUPIVACAINE HCL 0.25 % INJ/PF (2.5 MG/1 ML) 30 ML VIAL ONE (12:00)
[2019-08-29] MEDS ORDERED: ACETAMINOPHEN 1,000 MG/100 ML RTUPB IV PRN (12:18)
[2019-08-29] MEDS ORDERED: ACETAMINOPHEN 325 MG TABLET PO PRN (12:18)
[2019-08-29] MEDS ORDERED: MEASLES,MUMPS&RUBELLA VACC/PF 0.5 ML VIAL SUBCUT PRN (12:18)
[2019-08-29] MEDS ORDERED: DIPH/PERTUSS(ACELL)/TETANUS VAC/PF 0.5 ML SYR (>=10YO) IM PRN (12:18)
[2019-08-29] MEDS ORDERED: OXYTOCIN/0.9 % SODIUM CHLORIDE 30 UNIT/500 ML RTUINJ IV PRN (12:18)
[2019-08-29] MEDS ORDERED: MORPHINE SULFATE 10 MG/ML INJ ONE (12:23)
[2019-08-29] MEDS ORDERED: OXYTOCIN/0.9 % SODIUM CHLORIDE 30 UNIT/500 ML RTUINJ ONE (12:24)
--- NOTE | 2019-08-29 12:24 | Operative Report ---
Operative Report DATE OF SURGERY: 08/29/19 Operative Report: repeat c/section w/ Pen Mar tubal ligation PREOPERATIVE DIAGNOSIS: IUP @ 39 + wks, previous c/section x 3, undesired fertility POSTOPERATIVE DIAGNOSIS: Same OPERATION: Repeat section with Pen Mar tubal ligation SURGEON: VICKY MACKAY ANESTHESIA: Spinal COMPLICATIONS: None ESTIMATED BLOOD LOSS: 700 cc INTRAOPERATIVE FINDINGS: Female in cephalic presentation with Apgars of 8 and 9 meconium staining tubal adhesions PROCEDURE: The patient was taken to the operating room, prepared and draped in anormal sterile fashion in a supine position with a leftward tilt. A transverse skin incision was made with a scalpel and carried through tothe underlying layer of fascia with the same scalpel. The fascia was excised in the midline and extended laterally with Mayra. The fascia was then dissected from the rectus muscle sharply with Mayra and the rectus muscle was divided and the peritoneal cavity was entered sharply with the same Metzenbaum. With good visualization of the bladder and the uterus the bladder blade was inserted. Thick peritoneal adhesion to the anterior aspect of the uterus was divided with the Bovie. the hysterotomy was nicked with a scalpel and extended laterally with surgeon finger fraction. The was then delivered atraumatically. The nose and mouth were suctioned with a suction bulb, the cord was clamped and cut and handed off to awaiting pediatricians. Cord blood was collected. The placenta was removed manually. The uterus was exteriorized and cleared of clots and debris. The hysterotomy was closed with 0 Monocryl in a running, locked fashion. A second layer of the same suture was used to imbricate to ensure hemostasis. Attention was then turned to the fallopian tubes where the right fallopian tube was grasped with a Leticia, the mesosalpinx was divided with a Bovie. a 3-1/2 cm segment of fallopian tube was tied off with 2 pieces of 2-0 chromic.this segment was ligated using Metzenbaums and the pedicles were made hemostatic with the Bovie. This procedure was repeated on the left fallopian tube without difficulty. The uterus was returned to the abdomen and peritoneal cavity was cleared of clots and debris. The pedicles were inspected and they were still hemostatic. The rectus muscle and peritoneum were repaired with mattress stitch of 2-0 Chromic. The fascia was closed with 0-Vicryl. The subcutaneous layer was closed with plain catgut and the skin was closed with 4-0 Vicryl. The patient tolerated the procedure well. Sponge, lap, and needle counts correct x2 and the patient was taken to recovery in stable condition.
[2019-08-29] MEDS: OXYCODONE-ACETAMINOPHEN 5-325 MG TABLET PO PRN ×2 (15:40→22:34)
[2019-08-29] MEDS: MORPHINE SULFATE 10 MG/ML INJ IV PRN (17:53)
[2019-08-29] MEDS: DOCUSATE SODIUM 100 MG CAPSULE PO SCH (17:54)
[2019-08-29] MEDS: KETOROLAC TROMETHAMINE INJ/PF 30 MG/1 ML SDV IV SCH (17:54)
[2019-08-30] MEDS: KETOROLAC TROMETHAMINE INJ/PF 30 MG/1 ML SDV IV SCH ×2 (02:52→09:50)
[2019-08-30 06:04] LABS: HEMATOCRIT 31.1 % (36.0-47.0); HEMOGLOBIN 10.6 g/dL (12.0-15.5); MEAN CORPUSCULAR HEMOGLOBIN 26.5 pg (27.0-33.4); MEAN CORPUSCULAR HGB CONC 33.9 g/dL (32.0-36.0); MEAN CORPUSCULAR VOLUME 78 fl (80-97); PLATELET COUNT 237 10^3/uL (150-450); RED BLOOD COUNT 3.98 10^6/uL (3.72-5.28); RED CELL DISTRIBUTION WIDTH 14.7 % (11.5-14.0); WHITE BLOOD COUNT 9.8 10^3/uL (4.0-10.5)
[2019-08-30] MEDS: MORPHINE SULFATE 10 MG/ML INJ IV PRN (08:20)
[2019-08-30] MEDS: DOCUSATE SODIUM 100 MG CAPSULE PO SCH ×2 (09:50→18:30)
[2019-08-30] MEDS: PRENATAL VITAMIN W DHA CAPSULE PO SCH (09:50)
--- NOTE | 2019-08-30 10:40 | PDOC PROGRESS REPORT ---
Subjective-OB Progress Note for:: 08/30/19 - POD #1, doing well this morning, O+, rubella immune, bottle feeding Physical Exam (OB) Vital Signs: Temp Pulse Resp BP Pulse Ox 98.2 F 76 18 120/74 98 08/30/19 07:17 08/30/19 07:17 08/30/19 07:17 08/30/19 07:17 08/30/19 07:17 Intake & Output 08/29/19 08/30/19 08/31/19 06:59 06:59 06:59 Intake Total 782 Output Total 2410 Balance -1628 Weight 148 kg - General General Appearance: Appears well, Alert - PIH/Pre-Eclampsia Clonus: Negative Headache: Absent Epigastric Pain: No Visual Changes: No - Dressing Removed: No Incision: Dressing Closure Type: Opsite - Lochia Lochia Amount: Small 10-25 ml Lochia Color: Rubra/Red - Abdomen Description: Tender, Soft Hernia Present: Yes Fundal Description: Firm, Midline Describe if Not Midline: pt refused Fundal Height: u/3 - u/4 - Respiratory Respiratory Status: No respiratory distress - Cardiovascular Rhythm: Regular - Abdominal Distension: No distension Tenderness: Nontender - Genitourinary Genitourinary Note: voiding - Extremities Upper extremity: Normal inspection Lower extremities: Normal inspection - Neurological Cognition: Normal Orientation: AAOx4 - Skin Skin Temperature: Warm Skin Moisture: Dry Objective-Diagnostic Laboratory: 08/30/19 05:43 08/29/19 08/30/19 09:30 05:43 WBC 9.8 RBC 3.98 Hgb 10.6 L Hct 31.1 L MCV 78 L MCH 26.5 L MCHC 33.9 RDW 14.7 H Plt Count 237 Urine Color YELLOW Urine Appearance SLIGHTLY-CLOUDY Urine pH 6.0 Ur Specific [place] 1.013 Urine Protein NEGATIVE Urine Glucose (UA) NEGATIVE Urine Ketones NEGATIVE Urine Blood NEGATIVE Urine Nitrite NEGATIVE Ur Leukocyte Esterase SMALL H Urine WBC (Auto) 15 Urine RBC (Auto) 1 Assessment and Plan(PN) - Assessment and Plan (1) Previous section Is this a current diagnosis for this admission?: Yes (2) Sterilization Is this a current diagnosis for this admission?: Yes (3) Substance abuse affecting in third trimester, antepartum Is this a current diagnosis for this admission?: Yes (4) Anemia Qualifiers: Anemia type: iron deficiency Iron deficiency anemia type: unspecified iron deficiency Qualified Code(s): D50.9 - Iron deficiency anemia, unspecified Is this a current diagnosis for this admission?: Yes (5) S/P repeat low transverse Is this a current diagnosis for this admission?: Yes Plan:: Routine Post Op and PP care, ambulation encouraged - Time Spent with Patient Time with patient: Less than 15 minutes Medications reviewed and adjusted accordingly: Yes - Disposition Anticipated Discharge: Home Within: within 48 hours
[2019-08-30] MEDS: OXYCODONE-ACETAMINOPHEN 5-325 MG TABLET PO PRN ×2 (15:08→20:00)
[2019-08-30] MEDS: IBUPROFEN 800 MG TABLET PO SCH (18:30)
[2019-08-30] MEDS: SIMETHICONE 80 MG TAB.CHEW PO PRN (20:00)
[2019-08-31] MEDS: IBUPROFEN 800 MG TABLET PO SCH ×5 (00:02→23:35)
[2019-08-31] MEDS: OXYCODONE-ACETAMINOPHEN 5-325 MG TABLET PO PRN ×4 (03:47→22:06)
[2019-08-31] MEDS: PRENATAL VITAMIN W DHA CAPSULE PO SCH (09:28)
[2019-08-31] MEDS: DOCUSATE SODIUM 100 MG CAPSULE PO SCH ×2 (09:28→17:46)
--- NOTE | 2019-08-31 10:06 | PDOC PROGRESS REPORT ---
Subjective-OB Progress Note for:: 08/31/19 - POD #2, doing well, O+, Rubella Immune, bottle feeding. s/p Rpt w/ BTL, Physical Exam (OB) Vital Signs: Temp Pulse Resp BP Pulse Ox 98.7 F 78 16 122/78 98 08/31/19 09:26 08/31/19 09:26 08/31/19 09:26 08/31/19 09:26 08/31/19 09:26 Intake & Output 08/30/19 08/31/19 09/01/19 06:59 06:59 06:59 Intake Total 782 820 Output Total 2410 1350 Balance -1628 -530 Weight 148 kg - General General Appearance: Appears well, Alert In distress: None - PIH/Pre-Eclampsia Clonus: Negative Headache: Absent Epigastric Pain: No Visual Changes: No - Dressing Removed: No Incision: Dressing Closure Type: Opsite - Lochia Lochia Amount: Small 10-25 ml Lochia Color: Rubra/Red - Abdomen Description: Tender, Soft Hernia Present: No Fundal Description: Firm, Midline Describe if Not Midline: Refused fundal assessment x3. Educated on risks. Fundal Height: u/u - u/2 - Respiratory Respiratory Status: No respiratory distress - Abdominal Distension: No distension Tenderness: Other - tender at incision area - Genitourinary Genitourinary Note: voiding - Extremities Upper extremity: Normal inspection Lower extremities: Normal inspection - Neurological Cognition: Normal Orientation: AAOx4 - Psychological Associated symptoms: Normal affect, Normal mood - Skin Skin Temperature: Warm Skin Moisture: Dry Objective-Diagnostic Laboratory: 08/30/19 05:43 Assessment and Plan(PN) - Assessment and Plan (1) Previous section Is this a current diagnosis for this admission?: Yes (2) Sterilization Is this a current diagnosis for this admission?: Yes (3) Substance abuse affecting in third trimester, antepartum Is this a current diagnosis for this admission?: Yes (4) Anemia Qualifiers: Anemia type: iron deficiency Iron deficiency anemia type: unspecified iron deficiency Qualified Code(s): D50.9 - Iron deficiency anemia, unspecified Is this a current diagnosis for this admission?: Yes (5) S/P repeat low transverse Is this a current diagnosis for this admission?: Yes - Time Spent with Patient Time with patient: Less than 15 minutes Medications reviewed and adjusted accordingly: Yes - Disposition Anticipated Discharge: Home Within: within 24 hours
[2019-08-31] MEDS: SIMETHICONE 80 MG TAB.CHEW PO PRN (22:06)
[2019-09-01] MEDS: OXYCODONE-ACETAMINOPHEN 5-325 MG TABLET PO PRN ×3 (03:10→12:10)
[2019-09-01] MEDS: IBUPROFEN 800 MG TABLET PO SCH ×2 (06:04→12:10)
[2019-09-01 08:49] VITALS: BP 118/63
[2019-09-01] MEDS: PRENATAL VITAMIN W DHA CAPSULE PO SCH (09:41)
[2019-09-01] MEDS: DOCUSATE SODIUM 100 MG CAPSULE PO SCH (09:41)
--- NOTE | 2019-09-01 10:22 | PDOC DISCHARGE SUMMARY ---
Impression - Admit/DC Date/PCP Admission Date/Primary Care Provider: 08/29/19 08:08 YUNI WOOD CNM Discharge Date: 09/01/19 - POD #3, doing well, bottlefeeding and pumping. C/o tender area of breast tissue, engorged under the Rt axillary area, states happened w/ her last delivery as well. - Discharge Diagnosis (1) Previous section Is this a current diagnosis for this admission?: Yes (2) Sterilization Is this a current diagnosis for this admission?: Yes (3) Substance abuse affecting in third trimester, antepartum Is this a current diagnosis for this admission?: Yes (4) Anemia Is this a current diagnosis for this admission?: Yes (5) S/P repeat low transverse Is this a current diagnosis for this admission?: Yes - Additional Information Resuscitation Status: Full Code Discharge Diet: Regular Discharge Activity: Activity As Tolerated, Balance Activity w/Rest, No Driving, No Lifting Over 10 Pounds, No Lifting/Push/Pulling, Pelvic Rest, No tub bath Referrals: YUNI WOOD CNM [Primary Care Provider] - Prescriptions: Ibuprofen [Motrin 800 mg Tablet] 800 mg PO Q6 #60 tablet Oxycodone HCl/Acetaminophen [Percocet 5-325 mg Tablet] 1 tab PO Q4HP PRN #30 tablet PRN Reason: Pain Scale Of 4 Home Medications: Prenat 115/Iron Fum/Folic/Dss [ 19 Tablet] 1 each PO DAILY 11/06/17 Ibuprofen [Motrin 800 mg Tablet] 800 mg PO Q6 #60 tablet 08/31/19 Oxycodone HCl/Acetaminophen [Percocet 5-325 mg Tablet] 1 tab PO Q4HP PRN #30 tablet 08/31/19 HPI Reason(s) for Admission: Ceasarean Section-Repeat Intrapartum Procedure(s): Tubal Ligation Hospital Course Hospital Course: normal Results Laboratory Results: WBC 9.8 10^3/uL (4.0-10.5) 08/30/19 05:43 RBC 3.98 10^6/uL (3.72-5.28) 08/30/19 05:43 Hgb 10.6 g/dL (12.0-15.5) L 08/30/19 05:43 Hct 31.1 % (36.0-47.0) L 08/30/19 05:43 MCV 78 fl (80-97) L 08/30/19 05:43 MCH 26.5 pg (27.0-33.4) L 08/30/19 05:43 MCHC 33.9 g/dL (32.0-36.0) 08/30/19 05:43 RDW 14.7 % (11.5-14.0) H 08/30/19 05:43 Plt Count 237 10^3/uL (150-450) 08/30/19 05:43 Lymph % (Auto) 25.0 % (13-45) 08/29/19 08:45 [place] % (Auto) 9.9 % (3-13) 08/29/19 08:45 Eos % (Auto) 1.1 % (0-6) 08/29/19 08:45 Baso % (Auto) 0.7 % (0-2) 08/29/19 08:45 Absolute Neuts (auto) 5.1 10^3/uL (1.7-8.2) 08/29/19 08:45 Absolute Lymphs (auto) 2.0 10^3/uL (0.5-4.7) 08/29/19 08:45 Absolute Monos (auto) 0.8 10^3/uL (0.1-1.4) 08/29/19 08:45 Absolute Eos (auto) 0.1 10^3/uL (0.0-0.6) 08/29/19 08:45 Absolute Basos (auto) 0.1 10^3/uL (0.0-0.2) 08/29/19 08:45 Seg Neutrophils % 63.3 % (42-78) 08/29/19 08:45 POC Glucose 115 mg/dL (70-110) H 08/29/19 08:44 Urine Color YELLOW 08/29/19 09:30 Urine Color YELLOW 08/29/19 09:30 Urine Appearance SLIGHTLY-CLOUDY 08/29/19 09:30 Urine Appearance SLIGHTLY-CLOUDY 08/29/19 09:30 Urine pH 6.0 (5.0-9.0) 08/29/19 09:30 Urine pH 6.0 (5.0-9.0) 08/29/19 09:30 Ur Specific [place] 1.013 08/29/19 09:30 Ur Specific [place] 1.013 08/29/19 09:30 Urine Protein NEGATIVE mg/dL (NEGATIVE) 08/29/19 09:30 Urine Protein NEGATIVE mg/dL (NEGATIVE) 08/29/19 09:30 Urine Glucose (UA) NEGATIVE mg/dL (NEGATIVE) 08/29/19 09:30 Urine Glucose (UA) NEGATIVE mg/dL (NEGATIVE) 08/29/19 09:30 Urine Ketones NEGATIVE mg/dL (NEGATIVE) 08/29/19 09:30 Urine Ketones NEGATIVE mg/dL (NEGATIVE) 08/29/19 09:30 Urine Blood NEGATIVE (NEGATIVE) 08/29/19 09:30 Urine Blood SMALL (NEGATIVE) H 08/29/19 09:30 Urine Nitrite NEGATIVE (NEGATIVE) 08/29/19 09:30 Urine Nitrite NEGATIVE (NEGATIVE) 08/29/19 09:30 Urine Bilirubin NEGATIVE (NEGATIVE) 08/29/19 09:30 Urine Bilirubin NEGATIVE (NEGATIVE) 08/29/19 09:30 Urine Urobilinogen 2.0 mg/dL (<2.0) H 08/29/19 09:30 Urine Urobilinogen 2.0 mg/dL (<2.0) H 08/29/19 09:30 Ur Leukocyte Esterase SMALL (NEGATIVE) H 08/29/19 09:30 Ur Leukocyte Esterase SMALL (NEGATIVE) H 08/29/19 09:30 Urine WBC (Auto) 15 /HPF 08/29/19 09:30 Urine RBC (Auto) 1 /HPF 08/29/19 09:30 Urine Bacteria (Auto) 1+ /HPF 08/29/19 09:30 Squamous Epi Cells Auto 12 /HPF 08/29/19 09:30 Urine Mucus (Auto) RARE /LPF 08/29/19 09:30 Urine Ascorbic Acid NEGATIVE (NEGATIVE) 08/29/19 09:30 Urine Ascorbic Acid NEGATIVE (NEGATIVE) 08/29/19 09:30 Urine Opiates Screen UNCONFIRMED POSITIVE 08/29/19 09:30 Urine Methadone Screen NEGATIVE 08/29/19 09:30 Ur Barbiturates Screen NEGATIVE 08/29/19 09:30 Ur Phencyclidine Scrn NEGATIVE 08/29/19 09:30 Ur Amphetamines Screen NEGATIVE 08/29/19 09:30 U Benzodiazepines Scrn NEGATIVE 08/29/19 09:30 Urine Cocaine Screen NEGATIVE 08/29/19 09:30 U Marijuana (THC) Screen NEGATIVE 08/29/19 09:30 COVID-19 Source Cancelled 08/29/19 08:25 COVID-19 (FILIBERTO) Cancelled 08/29/19 08:25 SARS-CoV-2 (PCR) NEGATIVE (NEGATIVE) 08/29/19 08:15 Blood Type O POSITIVE 08/29/19 08:45 Antibody Screen NEGATIVE 08/29/19 08:45 Plan Plan of Treatment: d/c home, f/up with [facility] in one week for an incision check and to evaluate engorged breast tissue in Rt axillary area. Pt to pump, use hot and cold packs to area as needed. Fever precautions reviewed. Time Spent: Less than 30 Minutes
== END 2019-09-01 12:15 | disposition home or self-care (01) | DRG 785 ==
LOC: 2S 08:08
PROVIDERS: ADMIT Obstetrics & Gynecology; ATTEND Obstetrics & Gynecology
PROC: 10D00Z1 Extraction of Products of Conception, Low, Open Approach (ICD-10-PCS; principal; 2019-08-29)
PROC: 0UB70ZZ Excision of Bilateral Fallopian Tubes, Open Approach (ICD-10-PCS; 2019-08-29)
DX: O99.324 Drug use complicating childbirth (principal); O34.219 Maternal care for unspecified type scar from previous cesarean delivery; O99.02 Anemia complicating childbirth; O77.0 Labor and delivery complicated by meconium in amniotic fluid; O99.89 Other specified diseases and conditions complicating pregnancy, childbirth and the puerperium; F11.90 Opioid use, unspecified, uncomplicated; D50.9 Iron deficiency anemia, unspecified; N73.6 Female pelvic peritoneal adhesions (postinfective); Z30.2 Encounter for sterilization; Z37.0 Single live birth; Z3A.39 39 weeks gestation of pregnancy
CPT/HCPCS: 1961; 36415; 59025; 80307; 80361; 81001; 81005; 82962; 85025; 85027; 86592; 86850; 86900; 86901; 87635; 88302; 94760; 94799; C1758; C1765; J0131; J1885; J2250; J2270; J2405; J2590; J3010; J3490; J7120